=== PATIENT | female | born 1965 | race African-American/Black ===

== ENCOUNTER 2016-07-17 14:31 | Inpatient (IN) | payer MEDICARE, OTHER ==
--- NOTE | ~2016-07-17 | CN ---
Consultation Report [facility] [address] [place]. [address] NAME: MELISSA GARDNER : 61 STATUS : ADM IN PAT#: [id number] AGE: 51 ADM/REG DATE : 07/17/16 MR#: [id number] REPORT SERV DATE: 07/22/16 DICTATED BY: CIRILO CRUZ DATE: 07/22/16 REPORT STATUS : Draft TRANSCRIBED BY: MODL DATE: 07/22/16 CONSULTATION DATE OF CONSULTATION: REASON FOR CONSULTATION: Right atrial mass, consideration for surgical excision. CHIEF COMPLAINT: "I had clotting of my left arterial venous fistula." HISTORY OF PRESENT ILLNESS: This is a 51-year-old, morbidly obese, -Slovenian female, with history of end-stage renal disease, on hemodialysis. She recently had left arterial venous fistula created by Dr. Jenkins, and apparently developed clotting of her left AV fistula. She came back to [place] for declotting of the graft, and postprocedure developed hypotension and hypercapnic respiratory failure. She has a prior PermCath, which is used for dialysis currently. Because of hypotension, she underwent further evaluation including transthoracic echocardiogram, which appeared to show right atrial mass possibly involving the PermCath. Further evaluation with transesophageal echocardiogram today by Dr. Blue showed this mass to arise from the eustachian valve, although contiguous to the PermCath actually did not appear to be adherent to it. Her ejection fraction was 55% on transesophageal echocardiogram. The patient tells me that, she is a former patient of Dr. Nila Parada and had apparently an abnormal echocardiogram many years ago. She does not know what sort of heart problem she had, but was followed by Dr. Parada. She denies any history of heart attack. She denies any history of palpitations or abnormal heart rhythm other than bradycardia. She does have a greater than 33-[id number]-[id number] smoking history. She denies any recent chest discomfort, tightness, pressure, heaviness etc. She is wheelchair bound and transfers with assistance of a lift. PRIOR MEDICAL HISTORY: 1. Significant for end-stage renal disease, on dialysis. 2. Hypertension. 3. Morbid obesity. 4. Monoclonal gammopathy. 5. Cigarette smoking greater than 15 pack years. 6. Gastroesophageal reflux disease. 7. Anemia. 8. Respiratory failure. 9. Multiple sacral decubiti. 10.Seizure disorder. 11.Depression. 12.Iron deficiency anemia. 13.Chronic GI tract AVMs. 14.COPD, on bronchodilators. Consultation Report [facility] [address] [place]. [address] NAME: MELISSA GARDNER : 61 STATUS : ADM IN PAT#: [id number] AGE: 51 ADM/REG DATE : 07/17/16 MR#: [id number] REPORT SERV DATE: 07/22/16 DICTATED BY: CIRILO CRUZ DATE: 07/22/16 REPORT STATUS : Draft TRANSCRIBED BY: KO DATE: 07/22/16 PRIOR SURGICAL HISTORY: Significant for cholecystectomy, previous breast biopsy, tubal ligation, uterine ablation, and recently creation of left arteriovenous fistula. ALLERGIES: INCLUDE CEPHALEXIN CAUSING HER RESPIRATORY DISTRESS AND HALLUCINATIONS, VANCOMYCIN WITH SAME SYMPTOMS, LATEX WHICH CAUSES ITCHING AND SWELLING. HOME MEDICATIONS: Include albuterol inhaler with 2 puffs every 4 hours p.r.n., amlodipine 5 mg p.o. p.r.n., vitamin C 500 mg p.o. daily, baclofen 10 mg p.o. daily, Lexapro 20 mg p.o. daily, Breo Ellipta inhaler 1 puff daily, Keppra 250 mg p.o. b.i.d., Prilosec 20 mg p.o. daily, RenaPlex one capsule at bedtime, and Calphron 2 tabs p.o. before meals. Currently she is on heparin intravenous infusion. FAMILY HISTORY: Significant for hypertension, kidney problems. SOCIAL HISTORY: She is single, formally smoked up until this hospitalization, has remote history of drinking alcohol, but no recent use. No illicit drug use. REVIEW OF SYSTEMS: GENERAL: Negative for any recent weight change, fevers, chills, night sweats, or malaise. ENT: Positive for missing teeth. RESPIRATORY: Positive for COPD, shortness of breath, and recent respiratory failure. CV: As above. She has chronic swelling of her lower extremities. GI: Positive for gastroesophageal reflux disease, the patient denies any history of black tarry or discolored stools and denies any history of GI bleeding. : Positive for her chronic kidney disease and recurrent urinary tract infections. MUSCULOSKELETAL: Positive for weakness in the lower extremities, limited mobility, and essentially wheelchair confined. NEUROLOGIC: Denies any history of stroke or TIA. ENDOCRINE: Negative. HEME/ONC: Positive for anemia. INTEGUMENTARY: Positive for sacral decubiti, dry skin, and scaling skin over lower extremities. Otherwise, negative or as above. PHYSICAL EXAMINATION: GENERAL: She is a pleasant -Slovenian female, lying in bed, with warming blanket. VITAL SIGNS: Her height is 167.56 cm, weight 125.6 kg giving her BMI of 44.7. VITAL SIGNS: Blood pressure is 108/56, temperature 98.6, pulse is 47, respirations 20 regular and unlabored, saturation is 100% on 3 L nasal cannula. HEENT: Normocephalic, atraumatic. Pupils are equal, round, reactive to light and accommodation, sclerae clear, conjunctivae pink. Oral and buccal mucosa pink and moist, teeth in reasonable condition and multiple missing teeth. NECK: Supple. No restricted range of motion. No carotid bruits. No jugular venous distention. CHEST: Diminished breath sounds in left lung bases with few scattered expiratory wheezes. Consultation Report [address] [place]. [address] NAME: MELISSA GARDNER : 61 STATUS : ADM IN [facility]#: [id number] AGE: 51 ADM/REG DATE : 07/17/16 MR#: [id number] REPORT SERV DATE: 07/22/16 DICTATED BY: CIRILO CRUZ DATE: 07/22/16 REPORT STATUS : Draft TRANSCRIBED BY: MODKatie DATE: 07/22/16 No use of accessory muscles. No chest wall tenderness. BREASTS: Not examined. She has purulent drainage from multiple foci in the left axilla. CV: Regular rate and rhythm without murmur or rub. She has palpable central pulses and upper extremity peripheral pulses, significant lower extremity edema. ABDOMEN: Obese, nontender with normoactive bowel sounds. /RECTAL: Declined. MUSCULOSKELETAL: No kyphoscoliosis. No asymmetry. NEUROLOGIC: She is alert and oriented to day, date, place, and situation. Speech is clear, fluent, no focal deficits. She moves all extremities. DATA: Her chest x-ray shows bilateral interstitial edema. CTA chest on 07/19/2016 showed truncal obesity, cardiomegaly, no PE, and bibasilar atelectatic changes left greater than right with small pleural effusions. There was noted a central line with associated thrombus in the catheter tip. Also, reported relative stenosis of the superior vena cava and moderate pulmonary edema. A 12-lead EKG on 07/18/2016 showed normal sinus rhythm with right axis deviation, T wave abnormality, consider inferior ischemia. Echocardiograms as mentioned above. LABORATORIES: ABG showed pH of 7.31, PaCO2 of 49, PaO2 of 87, bicarb 24.1. CBC shows mild leukocytosis at 13.4, hemoglobin 10.8g, hematocrit 34.7%, platelets 187,000. Her electrolytes drawn while on CRRT show sodium 138, potassium 4.1, chloride 99, CO2 of 28, BUN 8, creatinine 1.15. Nasal swab is positive for MRSA. Stool for occult blood today was positive. Swab from the left axillary and purulent drainage on Gram stain showed gram- positive cocci. IMPRESSION: 1. Right atrial mass/myxoma. 2. Recent respiratory failure and hypotension. 3. Morbid obesity. 4. Sacral decubiti. 5. Possible suppurative hidradenitis, left axilla. 6. Anemia. 7. Heme positive stool. 8. End-stage renal disease, on dialysis, currently on CRRT. PLAN: Discussed with the patient and her son today. Likely, will require surgical excision of the right atrial myxoma at this hospitalization, and in preparation for this, we will need diagnostic coronary arteriogram. Dr. Swift will see and make further surgical plans and disposition. We appreciate the opportunity to participate in her care. JESS/KO Cirilo Sofia Consultation Report [address] [place]. [place]. [address] NAME: MELISSA GARDNER : 61 STATUS : ADM IN [facility]#: [id number] AGE: 51 ADM/REG DATE : 07/17/16 MR#: [id number] REPORT SERV DATE: 07/22/16 DICTATED BY: CIRILO CRUZ DATE: 07/22/16 REPORT STATUS : Draft TRANSCRIBED BY: MODL DATE: 07/22/16 Francisco Javier Cruz / [id number] CC: Cecy Cat M.D.
--- NOTE | ~2016-07-17 | HP ---
History And Physical [address] [place]. [address] NAME: MELISSA GARDNER : 61 STATUS : ADM IN PAT#: [id number] AGE: 51 ADM/REG DATE : 07/17/16 MR#: [id number] REPORT SERV DATE: 07/21/16 DICTATED BY: HEAVENLY ESCAMILLA DATE: 07/21/16 REPORT STATUS : Draft TRANSCRIBED BY: MODKatie DATE: 07/21/16 DATE OF ADMISSION: 07/17/2016 HISTORY: The patient is a 51-year-old female. She is on dialysis with a PermCath. She had a recent placement of a left arm AV graft which is known to be thrombosed. It was felt she would benefit from thrombectomy to treat this. The patient is without other complaints currently. REVIEW OF SYSTEMS: The patient denies fever, chills, or systemic complaints. She denies chest pain, palpitations, shortness of breath, or cough. MEDICATIONS: Listed in full on the chart. ALLERGIES: LISTED IN FULL ON THE CHART. ILLNESSES: End-stage renal disease, hypertension, morbid obesity, tobacco use, and reflux. SURGICAL HISTORY: AV access. SOCIAL HISTORY: Positive for history of tobacco use. No alcohol. FAMILY HISTORY: Noncontributory. PHYSICAL EXAMINATION: GENERAL: The patient is in no distress. VITAL SIGNS: Normal. NEUROLOGIC: She is alert and oriented with preserved motor function in lower extremities and upper extremities. LUNGS: Clear. HEART: Regular. EXTREMITIES: Left arm shows a clotted AV graft. IMPRESSION: Clotted left arm AV graft. PLAN: Plan is for thrombectomy of this. She will hopefully be discharged afterwards. LOUIS/KO Heavenly Escamilla M.D. / [id number] History And Physical [address] [place]. [address] NAME: MELISSA GARDNER : 61 STATUS : ADM IN PAT#: [id number] AGE: 51 ADM/REG DATE : 07/17/16 MR#: [id number] REPORT SERV DATE: 07/21/16 DICTATED BY: HEAVENLY ESCAMILLA DATE: 07/21/16 REPORT STATUS : Draft TRANSCRIBED BY: MODL DATE: 07/21/16 CC: Cecy Cat M.D.
--- NOTE | ~2016-07-17 | CN ---
Consultation Report [facility] [address] [place]. [address] NAME: MELISSA FREGOSO : 61 STATUS : ADM IN [facility]#: [id number] AGE: 51 ADM/REG DATE : 07/17/16 MR#: [id number] REPORT SERV DATE: 07/19/16 DICTATED BY: J CARLOS COFFEY DATE: 07/19/16 REPORT STATUS : Draft TRANSCRIBED BY: MODL DATE: 07/19/16 PULMONARY AND CRITICAL CARE CONSULTATION DATE OF CONSULTATION: 07/19/2016 REASON FOR CONSULTATION: Hypotension of unclear etiology. HISTORY OF PRESENT ILLNESS: Ms. Fregoso is a 51-year-old lady, who has end-stage renal disease, morbid obesity and hypertension, who was admitted to the vascular surgery service for a clotted left arm dialysis access on 07/17. She underwent open thrombectomy of the left arm AV graft with fistulogram and angioplasty with arterial anastomosis of the AV graft by Dr. Jenkins, which was uneventful, and she was transferred to the CCU for close monitoring postoperatively. Unfortunately, she developed hypotension and she was seen by Dr. Arzate for ESRD. He worked her up for her hypotension as she was dependent on Ric-Synephrine for hemodynamic support, and she was found to be adrenally insufficient with leukocytosis and was started on Solu-Cortef and Azactam earlier today. She did have an echocardiogram, which showed a right atrial mass with a question of myxoma versus thrombus and was seen by Dr. Blue for possible SONYA, which has been scheduled for later this week. We are asked to assist with additional management of her hypotension. PAST MEDICAL HISTORY: ESRD, on hemodialysis through [facility]; hypertension; morbid obesity; monoclonal gammopathy; tobacco use; GERD; seizure disorder. PAST SURGICAL HISTORY: AV graft placement in 05/[address] Jenkins (05/27/2016) and thrombectomy performed on 07/17/2016. SOCIAL HISTORY: She is single and lives with her significant other. She is unemployed, on disability, has limited mobility. She is a former smoker, but quit in 2012. Denies alcohol or illicit drug use. FAMILY HISTORY: Significant for hypertension, dyslipidemia, and diabetes in multiple first- degree relatives. ALLERGIES: SULFA. HOME MEDICATIONS: Include albuterol, amlodipine, ascorbic acid, baclofen, Lexapro, fluticasone, and Keppra. ADVANCE DIRECTIVES AND LIVING VILLA: None. REVIEW OF SYSTEMS: A comprehensive 13-point review of systems was completed and was negative, except for those points described above in the history of present illness section of the dictation. Consultation Report [facility] [id number] [place]. [address] NAME: MELISSA FREGOSO : 61 STATUS : ADM IN PAT#: [id number] AGE: 51 ADM/REG DATE : 07/17/16 MR#: [id number] REPORT SERV DATE: 07/19/16 DICTATED BY: J CARLOS COFFEY DATE: 07/19/16 REPORT STATUS : Draft TRANSCRIBED BY: KO DATE: 07/19/16 PHYSICAL EXAMINATION: GENERAL: The patient is an female, in no acute distress. VITAL SIGNS: Blood pressure is 112/80, heart rate is 78. She is afebrile. Pain scale is 2/10, and the left upper arm is the source of her pain. HEENT: Head is atraumatic and normocephalic. Pupils are equal, round, and reactive to light. Extraocular movements are intact. Ears, nose, and mouth are unremarkable. She has fair oral dentition and moist oral mucosa. NECK: Supple without JVD. CHEST: Atraumatic and has symmetric rise. She has scattered crackles at the bases bilaterally, but no audible wheeze. She has few transmitted upper airway sounds, which clear with coughing. HEART: S1 and S2. Brisk cap refill in distal extremities. ABDOMEN: Obese, soft, nontender, nondistended with positive bowel sounds in all four quadrants and no appreciable peritoneal signs. EXTREMITIES: She has a clean dressing over her left upper extremity thrombectomy site. Extremities are otherwise unremarkable, except for some trace pitting edema at the pretibial region of her legs. LYMPHATIC: Unremarkable. NEUROLOGIC: Grossly intact. She has symmetric sensorimotor function, intact cranial nerve function, and appropriate cooperative and interactive responses. PSYCHIATRIC: Appropriate to situation. LABORATORY DATA: Personal review of diagnostic workup completed includes a CBC which shows leukocytosis, white blood cell count is 20.3 with a neutrophil-predominant differential. She has mild normochromic-normocytic anemia with a hemoglobin of 11.2 and hematocrit of 36.9. Platelet count is adequate at 311. Her coags are within normal limits with an INR of 1.3. Metabolic profile significant for normal electrolytes. She has a BUN of 25 and a creatinine of 4.52 (she has ESRD). Calcium is 8, which corrects upwards with an albumin of 2.6, glucose of 152, calcium is 8, phosphorus 5.4. Her TSH is 1.60, her free T4 is 1.12, and her free T3 is 1.52, which is mildly below the lower limit of normal; however, this is commonly seen in critically ill patients with euthyroid sick syndrome. An ABG shows mild respiratory acidosis with a pH of 7.29, paCO2 of 54, and pO2 of 78. Of note, although she is morbidly obese, I have reviewed her old Nephrology records and she is not a chronic CO2 retainer as far as we can tell from the [facility] lab work dating back at least two years, base excess of -1.9. A blood culture was collected and is negative thus far. A cortisol level was 18, and she is already started on Solu-Cortef by Dr. Arzate. An echocardiogram shows a right atrial mass, unclear myxoma versus thrombus versus vegetation. IMPRESSION: Hypotension/shock of unclear etiology, less likely hypovolemic as she is mildly edematous and is a chronic dialysis patient with a net positive fluid balance. In light of her adrenal insufficiency, cannot exclude this as a source of her hypotension and she was already started on Solu-Cortef this morning by Dr. Arzate. With regard to her leukocytosis, a blood culture has already been collected and procalcitonin is pending. She has already been started on Azactam by Dr. Arzate for suspicion of septic shock, although she has this new finding of the atrial mass. She has already been seen by Dr. Blue, Consultation Report [address] [place]. [address] NAME: MELISSA FREGOSO : 61 STATUS : ADM IN [facility]#: [id number] AGE: 51 ADM/REG DATE : 07/17/16 MR#: [id number] REPORT SERV DATE: 07/19/16 DICTATED BY: J CARLOS COFFEY DATE: 07/19/16 REPORT STATUS : Draft TRANSCRIBED BY: KO DATE: 07/19/16 and he has already made recommendations with regard to SONYA later in the week. There was no comment with regard to obstructive shock on her echo. However, would agree with a PE study, which has already been recommended by Dr. Blue to exclude obstructive shock as a source for her hypotension. She is already on anticoagulation with a heparin drip. We appreciate your consultation. We will follow along with you. MONICA/KO J Carlos Coffey MD / [id number] CC: Patrick Jenkins M.D. Taran Ni M.D.
--- NOTE | ~2016-07-17 | TEE ---
Transesophageal Echocardiogram [facility] [address] [place]. [address] NAME: MELISSA GARDNER : 61 STATUS : ADM IN [facility]#: [id number] AGE: 51 ADM/REG DATE : 07/17/16 MR#: [id number] REPORT SERV DATE: 07/22/16 DICTATED BY: CHANO AGUILERA DATE: 07/22/16 REPORT STATUS : Draft TRANSCRIBED BY: MODKatie DATE: 07/22/16 SONYA REPORT INDICATION: Right atrial mass seen on transthoracic echocardiogram. Informed consent was obtained, signed, and on the chart prior to proceeding. A time-out was performed. Sedation was per Anesthesia, and esophageal intubation was without difficulty. TECH: TD. The overall quality of study was good. PROCEDURES PERFORMED: Included 2D, 3D, color, and spectral Doppler. 3D interrogation of the right atrial mass was performed with personal online and manual manipulation of the 3D data set to further assess mass anatomy. FINDINGS: CHAMBERS: 1. The right atrium appeared moderately-severely dilated. The superior and inferior vena cava appeared normal. There was a catheter tip extending from the superior vena cava into the mid portion of the right atrium. There was a large 3 to 3.5 cm mass that appeared around and somewhat irregular. It had a soft tissue echotexture. There was some tiny independently mobile "fronds" associated with the mass that appeared to attached to a region adjacent to the cava, tricuspid isthmus, and IVC, likely at the eustachian valve. The catheter tip was adjacent to the mass, but was not intimately associated with the mass. This mass likely represents a right atrial myxoma arising from the region of the eustachian valve. 2. The right ventricle was moderately dilated with moderate-severe hypocontractility. There was no mass thrombus seen. 3. The left atrium appeared mildly enlarged. Left atrial appendage was noted. There was no mass thrombus seen. 4. The left ventricle appeared mildly enlarged with a visually estimated EF of 55%. There were no regional wall motion abnormalities. There was no mass thrombus seen. VALVES: 1. Aortic valve morphology was trileaflet with adequate mobility. There were no valvular vegetations or masses seen. Aortic regurgitation was not assessed. 2. The mitral valve morphology was normal with fully mobile leaflets. There were no valvular vegetations or masses seen. Mitral regurgitation was not assessed. 3. The pulmonic valve appeared grossly normal with adequate mobility. The main pulmonary artery was mildly dilated. There was no mass or thrombus seen. There was trivial pulmonic regurgitation. 4. The tricuspid valve morphology was normal with fully mobile leaflets. There were no vegetations or masses seen. There was mild-moderate tricuspid regurgitation. The peak TR jet of 3.5 m/sec, and with an elevated right atrial pressure, this corresponds to a right ventricular systolic pressure of 60 to 70 mmHg (estimated). Transesophageal Echocardiogram [address] [address] NAME: MELISSA GARDNER : 61 STATUS : ADM IN PAT#: [id number] AGE: 51 ADM/REG DATE : 07/17/16 MR#: [id number] REPORT SERV DATE: 07/22/16 DICTATED BY: CHANO AGUILERA DATE: 07/22/16 REPORT STATUS : Draft TRANSCRIBED BY: MODL DATE: 07/22/16 OTHER: The interatrial septum was examined with multiple angulations and was intact by visual inspection with no mass or thrombus seen. There was no interatrial shunt seen by color Doppler. There was no pericardial effusion. The descending thoracic aorta appeared grossly normal in caliber with no significant atherosclerosis or dissection. 3D: 3D interrogation of the right atrial mass was performed with personal online manual manipulation confirming the above-stated findings of a large 3 to 3.5 cm soft tissue echodensity attached to a region adjacent to the eustachian valve with a "stalk." Catheter tip adjacent to, but separate from the right atrial mass. COMPLICATIONS: None. CONCLUSION: 1. 3 TO 3.5 CM RIGHT ATRIAL MASS ATTACHED TO A REGION ADJACENT TO THE EUSTACHIAN VALVE, LIKELY REPRESENTING A RIGHT ATRIAL MYXOMA. 2. RIGHT ATRIAL CATHETER TIP FROM THE SVC TO THE MID RA ADJACENT TO, BUT NOT INVOLVED WITH THE RIGHT ATRIAL MASS DESCRIBED ABOVE. 3. MODERATE-SEVERE RIGHT ATRIAL ENLARGEMENT. 4. MODERATELY ENLARGED RV WITH MODERATE-SEVERE HYPOCONTRACTILITY, CONSISTENT WITH COR PULMONALE. 5. MILD TRICUSPID REGURGITATION. 6. SEVERE PULMONARY HYPERTENSION. 7. INTACT INTERATRIAL SEPTUM. AEA/MODL Chano Aguilera M.D. / [id number] CC: Cecy Cat M.D.
--- NOTE | ~2016-07-17 | OP ---
Record Of Operation [facility] [address] [place]. [address] NAME: MELISSA FREGOSO : 61 STATUS : ADM [facility]#: [id number] AGE: 51 ADM/REG DATE : 07/17/16 MR#: [id number] REPORT SERV DATE: 07/20/16 DICTATED BY: LISBETH CARPENTER DATE: 07/20/16 REPORT STATUS : Draft TRANSCRIBED BY: KO DATE: 07/20/16 DATE OF PROCEDURE: 07/20/2016 PREOPERATIVE DIAGNOSIS: Poor IV access with need for vasopressors. POSTOPERATIVE DIAGNOSIS: Poor IV access with need for vasopressors. PROCEDURE: 1. Ultrasound-guided percutaneous access, right femoral vein. 2. Placement of right femoral vein central line. SURGEON: Lisbeth Carpenter M.D. ANESTHESIA: Local. ESTIMATED BLOOD LOSS: Negligible. COMPLICATIONS: None. INDICATIONS: Ms. Fregoso is a 51-year-old female, who is critically ill in the intensive care unit, on CRRT and multiple pressors. She has what appears to be a thrombus in her cavoatrial region, which may or may not be associated with her dialysis catheter. At any rate, she has limited IV access and needs ongoing pressors. I elected to place a femoral central line due to the aforementioned cavoatrial thrombus. DETAILS OF PROCEDURE: After informed consent was obtained, the patient was prepped and draped in the usual sterile fashion in the intensive care unit. I used ultrasound guidance to identify the femoral vein. It was widely patent and easily compressible. Permanent image of the vein documenting patency was saved and stored in the patient's chart. I anesthetized the skin. I accessed with an 18-gauge entry needle and easily passed a J-tip guidewire intravenous. I dilated the subcutaneous tract. I then placed a triple-lumen central line over the wire. All three ports aspirated dark venous blood and flushed easily with heparinized saline. Catheter was secured to the skin with 2-0 silk. Sterile dressings were applied. The patient tolerated the procedure well with no complications. SARAH/KO Lisbeth Carpenter M.D. / [id number] CC: Patrick Jenkins M.D. Record Of Operation [address] [address] NAME: MELISSA FREGOSO : 61 STATUS : ADM IN PAT#: [id number] AGE: 51 ADM/REG DATE : 07/17/16 MR#: [id number] REPORT SERV DATE: 07/20/16 DICTATED BY: LISBETH CARPENTER DATE: 07/20/16 REPORT STATUS : Draft TRANSCRIBED BY: MODL DATE: 07/20/16 Taran Ni M.D.
--- NOTE | ~2016-07-17 | DS ---
Discharge Summary [facility] [address] [place]. [address] NAME: MELISSA GARDNER : 61 STATUS : DIS IN PAT#: [id number] AGE: 51 ADM/REG DATE : 07/17/16 MR#: [id number] REPORT SERV DATE: 08/07/16 DICTATED BY: HEAVENLY JENKINS DATE: 08/06/16 REPORT STATUS : Draft TRANSCRIBED BY: MODKatie DATE: 08/06/16 Data Collection from hospitalization DISCHARGE DIAGNOSES: 1. Clotted left arm arteriovenous graft. 2. Hypertension. 3. End-stage renal disease. 4. Morbid obesity. 5. Tobacco use. 6. Reflux. 7. Former smoker. CONSULTATIONS: Dr. Yulia Arzate. Dr. Ace Blue. Dr. Missy Mccurdy. Cirilo Howard N.P. Dr. Demetrio Tapia. PROCEDURES PERFORMED: 1. Open thrombectomy, left arm arteriovenous graft, fistulogram, angioplasty, arterial anastomosis, arteriovenous graft, 07/17/2016. 2. Ultrasound-guided percutaneous access, right femoral vein, placement of right femoral vein central line, 07/20/2016. 3. CTA of the chest, 07/19/2016. 4. Cardiac catheterization. DISCHARGE MEDICATIONS: Ventolin two puffs via inhaler every four hours as needed, Norvasc 5 mg daily as needed, Eliquis 2.5 mg twice a day, vitamin C 500 mg daily, Lioresal 10 mg twice a day, Monodox 100 mg twice a day, Lexapro 20 mg daily, Breo Ellipta one puff via inhaler daily, Keppra 250 mg twice a day, ProAmatine 5 mg three times a day, Prilosec 20 mg daily, Percocet 5/325 one to two tablets every four hours as needed, RenaPlex one capsule at bedtime, Calphron, vitamin two tablets before meals. CONDITION AT DISCHARGE: Stable. DISPOSITION: The patient was discharged home to be followed by home health care on a renal diet with activities as instructed. She would follow up with me, 08/21/2016. She would follow up with Dr. Jairo Swift, 08/14/2016. She is to have her renal ultrasound as instructed and would follow up at [facility], 07/31/2016. HOSPITAL COURSE: This is a 51-year-old female, who is on dialysis with a PermCath. She had a recent left arm AV graft, which was known to be thrombosed. It was felt that she would benefit from thrombectomy to treat this. She had no other complaints at this time. She was admitted to the hospital for further evaluation and treatment. Upon admission, she was taken to the operating room where she underwent the above-mentioned procedure. She tolerated this well and there were no complications. On postop day #1, she was seen by Dr. Yulia Arzate regarding end-stage renal disease, on hemodialysis. Postoperatively, she had developed hypotension and hypoxemia. She was transferred to the CCU. She remained on Ric-Synephrine at this time. She had no acute complaints. She had undergone dialysis on Thursday prior to this admission. Dr. Arzate wanted to get her off Discharge Summary [address] [place]. [address] NAME: MELISSA GARDNER : 61 STATUS : DIS IN PAT#: [id number] AGE: 51 ADM/REG DATE : 07/17/16 MR#: [id number] REPORT SERV DATE: 08/07/16 DICTATED BY: HEAVENLY JENKINS DATE: 08/06/16 REPORT STATUS : Draft TRANSCRIBED BY: KO DATE: 08/06/16 Ric-Synephrine prior to initiation of dialysis as it was felt that her hypotension would only worsen. An echocardiogram was going to be checked as well as blood cultures. Supportive care was continued. On 07/19/2016, dialysis had been performed. Echocardiogram had shown right atrial thrombus. She was now off pressors. She was placed on heparin. She was seen in consultation by Dr. Ace Blue regarding abnormal echo. She denied any history of chest pain or chest tightness. She does have chronic dyspnea, but no other particular symptoms. She said her last echo was many years ago. She had had no syncope, but is limited in her ambulation. White blood cell count was 18. INR level was 1.3. Blood cultures were negative thus far. She is morbidly obese. It was felt that visualizing the right atrial mass would be most consistent with thrombus for possible myxoma. Given the history of recent declot of the arm and acute hypoxia and hypotension, there was concern about the possibility of clot and pulmonary embolus. The patient was on heparin. A CT scan was recommended when clinically possible to evaluate her for this process. We would consider transesophageal echocardiogram earlier in the week when she was hemodynamically improved and her oxygenation was stable. She was also seen by Dr. Missy Mccurdy regarding hypotension of unclear etiology. Her hypotension/shock was of unclear etiology. It was felt to be less likely hypokalemic as she is mildly edematous and is a chronic dialysis patient with net positive fluid balance. In the light her adrenal insufficiency, we could not exclude this as a source of her hypotension as she had already started on Solu-Cortef that morning. With regard to the leukocytosis, a blood culture was collected and procalcitonin level was pending. She was started on Azactam. She was on a heparin drip. A CTA of the chest was performed. On the , CRRT therapy was being provided. She had no chest pain or shortness of breath. She was in a normal sinus rhythm. Heparin was continued. She underwent ultrasound-guided percutaneous access, right femoral vein and placement of right femoral vein central line by Dr. Arya Carpenter. She tolerated this well and there were no complications. On 07/21/2016, she had no shortness of breath. Ric-Synephrine had been stopped. CRRT therapy continued. She had no chest pain or shortness of breath. The patient stated that her breathing had improved. She had a productive cough with clear phlegm. She was off pressors. She was tolerating ultrafiltration. CRRT would be discontinued when the filter clots and she would be transitioned to hemodialysis. Transesophageal echocardiogram was performed. She was seen by Cirilo Howard regarding right atrial mass and consideration for surgical excision. Chest x-ray showed bilateral interstitial edema. The patient has a right atrial mass/myxoma. It was felt that the patient would likely require surgical excision of the right atrial myxoma and in preparation for this, we would need diagnostic coronary arteriogram. On the , she had no shortness of breath. White blood cell count was elevated. She was in a normal sinus rhythm. White blood cell count was 18,000. On 07/24/2016, she had no shortness of breath. Hemodialysis therapy was performed. The patient was taken to the cardiac laborer construction or leak gang, where she underwent the above mentioned cardiac catheterization by Dr. Arya Zhu. She tolerated this well and there were no complications. She was seen by Dr. Demetrio Tapia regarding left axillary drainage and culture growing ESBL E. coli. It was noted that she had drainage from the left axilla and a culture was sent. According to the patient, this happened while she was given a bath and someone collected drainage from the left axilla with a tongue blade and put it in a cup. The Gram stain had few white blood cells and gram-positive cocci. Cultures grew sparse ESBL E coli and Discharge Summary [address] [place]. [address] NAME: MELISSA GARDNER : 61 STATUS : DIS IN PAT#: [id number] AGE: 51 ADM/REG DATE : 07/17/16 MR#: [id number] REPORT SERV DATE: 08/07/16 DICTATED BY: HEAVENLY JENKINS DATE: 08/06/16 REPORT STATUS : Draft TRANSCRIBED BY: KO DATE: 08/06/16 moderate gram-positive cocci. She was started on doxycycline the day previously and earlier in the day, was started on meropenem. She had had leukocytosis the whole time she was here, but she was on steroids plus looking back in the computer, it looked as if she had leukocytosis in the past. The patient said she had two other episodes of drainage from the left axilla in the past and once she was given antibiotics in the emergency room. She also had some under the breast in the past. The history was suggestive of hidradenitis suppurative in the aspect of the left axilla with multiple scars, which confirmed this. She reported occasional cough, but no shortness of breath. She was currently not on pressors, but was still on Solu-Cortef. She was felt to have hidradenitis suppurative involving the left axilla. Typically, antibiotics do not really make a big difference. Mainly, it was suggested to keep the area clean and to facilitate drainage. The only treatment would be radical resection when there was evidence of severe inflammation and sepsis. It would be okay to try doxycycline for the anti-inflammatory effect. Contact precautions were in place. On 07/26/2016, she seemed to feel fine. She had no chest pain, shortness of breath, or palpitations. Her lungs were clear. Hemodialysis therapy was performed. Solu-Cortef was held. The following day, she was feeling good. She was wanting to go home. She was in a sinus rhythm. Discharge planning was performed. The patient had not been out of bed since admission. She was evaluated by Physical Therapy. It was felt that she was currently at her baseline of functional mobilization. She is wheelchair dependent and had not ambulated in about nine years. Discharge planning continued. Antibiotics were continued. Blood pressure was okay on midodrine. On 07/28/2016, she was afebrile. Her vital signs were stable. She had no chest pain or shortness of breath. She was seen on hemodialysis. Discharge instructions were given. Due to her improved and stable condition, she was discharged home to be followed by home health care with the above-stated instructions. Information collected by: Tori Schmidt I submit the above information as my discharge summary. TG/KO Heavenly Jenkins M.D. / [id number] CC: Heavenly Jenkins M.D. Taran Ni M.D. Francisco Javier Gonzalez M.D. Lindsay C Crawford, M.D. Ace Blue M.D., Ph.D, F.A.C.C.
--- NOTE | ~2016-07-17 | CN ---
Consultation Report [facility] [address] [place]. [address] NAME: MELISSA FREGOSO : 61 STATUS : ADM IN [facility]#: [id number] AGE: 51 ADM/REG DATE : 07/17/16 MR#: [id number] REPORT SERV DATE: 07/19/16 DICTATED BY: ACE CLARK DATE: 07/19/16 REPORT STATUS : Draft TRANSCRIBED BY: MODKatie DATE: 07/19/16 CARDIOLOGY CONSULTATION DATE OF CONSULTATION: REQUESTING PHYSICIAN: Dr. Arzate. REASON FOR CONSULTATION: Abnormal echo. HISTORY OF PRESENT ILLNESS: Ms. Fregoso is a 51-year-old woman with a history of end-stage kidney disease, who has been on hemodialysis for 2 years. She was admitted to the hospital for declot of an arm graft. A large amount of thrombus was noted. After the procedure, she had persistent hypotension and hypoxia and was transferred to the CCU. An echocardiogram was obtained. The patient denies history of chest pain or chest tightness. She has chronic dyspnea but no other particular symptoms. She reports her last echo was many years ago. She has had no syncope but is limited in her ambulation. REVIEW OF SYSTEMS: The review of systems is as per the history of present illness. Ten other systems are negative. PAST MEDICAL HISTORY: 1. End-stage renal disease, on hemodialysis for 2 years with dialysis through a catheter which has been in place for 2 years by her report. 2. Morbid obesity. 3. Hypertension. 4. Reflux. 5. Monoclonal gammopathy. 6. Seizure disorder. FAMILY HISTORY: Positive for hypertension and kidney problems. SOCIAL HISTORY: The patient is single. Former smoker. No alcohol. ALLERGIES: CEPHALEXIN, VANCOMYCIN, AND LATEX. HOME MEDICATIONS: Albuterol; Norvasc 5 daily; vitamin C; baclofen; Lexapro; Keppra; and Prilosec. PHYSICAL EXAMINATION: VITAL SIGNS: The patient is afebrile. Heart rate 92, blood pressure 112/59. GENERAL: The patient is a pleasant, obese, black female, in no apparent distress. HEENT: Conjunctivae are anicteric, no xanthelasma, lips without cyanosis. NECK: Supple. Jugular venous pressure is difficult to assess. Carotids +2 without bruit. Consultation Report [facility] [address] [place]. [address] NAME: MELISSA FREGOSO : 61 STATUS : ADM IN PAT#: [id number] AGE: 51 ADM/REG DATE : 07/17/16 MR#: [id number] REPORT SERV DATE: 07/19/16 DICTATED BY: ACE CLARK DATE: 07/19/16 REPORT STATUS : Draft TRANSCRIBED BY: MODL DATE: 07/19/16 LUNGS: No wheezes, rales or rhonchi. Decreased breath sounds bilaterally. CARDIOVASCULAR: Regular rate and rhythm. Normal S1, S2. No murmur, rub, or gallop. Distant heart sounds. PMI is nondisplaced. ABDOMEN: Abdomen is obese, nontender, and nondistended. No hepatomegaly. EXTREMITIES: No edema. NEURO/PSYCH: Alert and oriented to person, place and time. No obvious neurologic deficits. Mood and affect normal. DATA: White blood cell count is 18, hematocrit 34. INR 1.3. Creatinine is 4.5. Blood cultures negative thus far. IMPRESSION: 1. 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 2. End-stage renal disease, on hemodialysis. 3. Hypotension and hypoxia. 4. Morbid obesity. 5. Hypertension. 6. Seizure disorder. RECOMMENDATIONS: Ms. Fregoso has an abnormal echo. She is morbidly obese and her echocardiogram is somewhat limited. I would think that visualizing this right atrial mass would be most consistent with thrombus or possible myxoma. Given the history of recent declot of her arm and acute hypoxia and hypotension, I am concerned about the possibility of clot and PE. I have discussed this with Dr. Arzate. She is on heparin now and I think she is adequately treated. I think I would recommend a CT scan when clinically possible for her to evaluate for that process. We could consider SONYA early in the week when she is hemodynamically improved and her oxygenation is stable. She would need to be sedated per Anesthesia for that elective SONYA procedure which may be able to allow us to better characterize this right atrial mass. I have discussed this with the patient as well. She is somewhat frustrated in that she was interested in going home but I have discussed with her that it is going to be important to figure out what is going on with her. Thank you for this consultation. Please contact me if you have any further questions. WO/MODL Ace Clark M.D., Ph.D, F.A.C.C. / [id number] CC: Patrick Jenkins M.D. Consultation Report [address] [address] NAME: MELISSA FREGOSO : 61 STATUS : ADM IN PAT#: [id number] AGE: 51 ADM/REG DATE : 07/17/16 MR#: [id number] REPORT SERV DATE: 07/19/16 DICTATED BY: ACE CLARK DATE: 07/19/16 REPORT STATUS : Draft TRANSCRIBED BY: MODL DATE: 07/19/16 Taran Ni M.D.
--- NOTE | ~2016-07-17 | CN ---
Consultation Report [facility] [address] [place]. [address] NAME: MELISSA GARDNER : 61 STATUS : ADM IN PAT#: [id number] AGE: 51 ADM/REG DATE : 07/17/16 MR#: [id number] REPORT SERV DATE: 07/24/16 DICTATED BY: DEMETRIO BARAHONA DATE: 07/24/16 REPORT STATUS : Draft TRANSCRIBED BY: MODL DATE: 07/24/16 INFECTIOUS DISEASE CONSULTATION DATE OF CONSULTATION: REASON FOR CONSULT: Left axillary drainage, culture growing ESBL E. coli. 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 She had an AV graft made on 05/27/2015. Of note, is that she received Ancef at the time of the procedure and then on 07/17/2016, she had an angioplasty and open thrombectomy of this graft because it was clotted. It looks like she received clindamycin for this. Postop, she had hypotension and hypoxemia. She was started on Solu-Cortef and pressors. Blood culture was negative. Echocardiogram showed a right atrial mass. On 07/19/2016, aztreonam was started for concern with sepsis. A CT of the chest showed a cardiomegaly, segmental left lower lobe atelectasis, pulmonary edema, and possible right atrial mass. On 07/20/2016, a right femoral central line was placed. On 07/21/2016, the Azactam was stopped. On 07/22/2016, the SONYA showed right atrial mass with "fronds" but not associated with the catheter tip. Right ventricle is dilated and had decreased contractibility. The left ventricular ejection fraction was good. There is pulmonary hypertension. Somebody noted that she had drainage from the left axilla and send a culture. According to the patient, this happened while she was given a bath and somebody collected drainage from left axilla with a tongue blade and put it in a cup. The Gram stain had few white blood cells and gram-positive cocci. The cultures grew sparse ESBL E. coli and moderate gram- positive cocci. ID consult was requested for this. She was started on doxycycline yesterday, then meropenem today. The patient has had leukocytosis the whole time here but she is on steroids plus looking back in the computer looks like she has had leukocytosis in the past. Procalcitonin was 0.3, liver enzymes within normal limits. She has been afebrile. Upon discussing with the patient, she has had about two other episodes of drainage from the left axilla in the past and one time she was given antibiotics at the emergency room. She also had some under the breast in the past. This history is suggestive of hidradenitis suppurativa in the aspect of the left axilla with multiple scars confirms that. She reports occasional cough, no shortness of breath. She is currently not on pressors but still on Solu-Cortef. PAST MEDICAL HISTORY: As I mentioned above plus possible history of CO2 retention, history of cholecystectomy, and tubal ligation. Consultation Report [facility] [address] [place]. [address] NAME: MELISSA GARDNER : 61 STATUS : ADM IN [facility]#: [id number] AGE: 51 ADM/REG DATE : 07/17/16 MR#: [id number] REPORT SERV DATE: 07/24/16 DICTATED BY: DEMETRIO BARAHONA DATE: 07/24/16 REPORT STATUS : Draft TRANSCRIBED BY: KO DATE: 07/24/16 ALLERGIES: SHE STATES VANCOMYCIN AND KEFLEX MADE HER LOOPY AND CAUSED MILD SHORTNESS OF BREATH. I SEE DOCUMENTED DOSE OF ANCEF ON THE 05/27/2016 HERE AT [facility]. SOCIAL HISTORY: She quit smoking four years ago. FAMILY HISTORY: Hypertension. MEDICATIONS ON ADMISSION: Albuterol, amlodipine, vitamin C, baclofen, Lexapro, Breo Ellipta, Keppra, Prilosec, RenaPlex, and Calphron Vit. PHYSICAL EXAMINATION: GENERAL: She is alert, awake. LUNGS: Distant sounds. Hard to evaluate. Decreased sounds throughout. ABDOMEN: Very obese, compressible. SKIN: Left axilla scars as I mentioned. There are still small fistulous openings with whitish fluid discharge. No wounds are seen on in the right axilla and under the breast. However, she has a large decubitus over the coccyx as well as ischial areas, there is clotted blood there and stools. She reports chronic wounds followed at [facility] in [place]. Here, she was seen by the Wound Care nurse who did not appreciate signs of infection. ASSESSMENT AND PLAN: 1. Hidradenitis suppurative involving the left axilla. Typically antibiotics do not really make a big difference. Mainly would suggest keeping the area clean and facilitating drainage. The only treatment would be a radical resection when there is evidence of severe inflammation and sepsis. It is okay to try doxycycline for the anti- inflammatory effect. 2. Large ischial and maybe coccyx decubitus which are chronic, cannot fully assess due to the soilage with stools and clotted blood but suggest further evaluation by the primary team. 3. I doubt that she has pneumonia. She has on the CT cardiomegaly and left lower lobe segmental atelectasis. 4. Leukocytosis which might be chronic. She is also on steroids. I agree with contact precautions. At this time, no followup, just as needed. Please call if any questions. I discussed with the nurse. PC/KO Demetrio Barahona M.D. Consultation Report [address] [place]. [address] NAME: MELISSA GARDNER : 61 STATUS : ADM IN [facility]#: [id number] AGE: 51 ADM/REG DATE : 07/17/16 MR#: [id number] REPORT SERV DATE: 07/24/16 DICTATED BY: DEMETRIO BARAHONA DATE: 07/24/16 REPORT STATUS : Draft TRANSCRIBED BY: MODL DATE: 07/24/16 / [id number] CC: Cecy Cat M.D.
--- NOTE | ~2016-07-17 | CN ---
Consultation Report [facility] [address] [place]. [address] NAME: MELISSA FREGOSO : 61 STATUS : ADM IN PAT#: [id number] AGE: 51 ADM/REG DATE : 07/17/16 MR#: [id number] REPORT SERV DATE: 07/18/16 DICTATED BY: YULIA CONCEPCION DATE: 07/18/16 REPORT STATUS : Draft TRANSCRIBED BY: MODL DATE: 07/18/16 NEPHROLOGY CONSULTATION DATE OF CONSULTATION: 07/18/2016 REASON FOR CONSULTATION: End-stage renal disease, on hemodialysis. HISTORY OF PRESENT ILLNESS: Ms Fregoso is a 51-year-old female with end-stage renal disease, morbid obesity, history of hypertension, tobacco use, GERD, and monoclonal gammopathy, who was admitted by Dr. Alice quiñones for clotted dialysis access. She underwent an open thrombectomy, fistulogram, and angioplasty of arterial anastomosis of AV graft. Postoperatively, she developed hypotension and hypoxemia, and was transferred to the CCU. She remains on Ric-Synephrine at this time. She is awake and alert, and has no acute complaints. She last had dialysis on Thursday. Her chest x-ray this morning showed no acute cardiopulmonary abnormalities. Labs yesterday showed a BUN and creatinine of 26 and 4.18, with a potassium of 5.0. PAST MEDICAL HISTORY: 1. ESRD, on hemodialysis, with [facility]. 2. Hypertension. 3. Morbid obesity. 4. Tobacco use. 5. GERD. PAST SURGICAL HISTORY: AV graft placement. ALLERGIES: NO KNOWN DRUG ALLERGIES. SOCIAL HISTORY: The patient is single and lives with the significant other. She is unemployed and has limited mobility, and apparent transportation challenges. She is a former smoker. Quit in 2012. No current alcohol use. No history of recreational drug use. ALLERGIES: SULFA DRUGS. HOME MEDICATIONS: 1. Albuterol 2 puffs every 4 hours. 2. Amlodipine 5 daily. 3. Ascorbic acid 500 daily. 4. Baclofen 10 b.i.d. 5. Lexapro 20 daily. 6. Fluticasone 1 puff daily. 7. Keppra 250 twice a day. REVIEW OF SYSTEMS: Consultation Report [facility] [address] [place]. [address] NAME: MELISSA FREGOSO : 61 STATUS : ADM IN PAT#: [id number] AGE: 51 ADM/REG DATE : 07/17/16 MR#: [id number] REPORT SERV DATE: 07/18/16 DICTATED BY: YULIA CONCEPCION DATE: 07/18/16 REPORT STATUS : Draft TRANSCRIBED BY: KO DATE: 07/18/16 All systems reviewed, negative excluding those mentioned and highlighted in the history of present illness. PHYSICAL EXAMINATION: VITAL SIGNS: Blood pressure 89/52, O2 saturation 100%, temperature 97.9, pulse 66, and respiratory rate 18. GENERAL: This is a chronically ill, obese female, resting comfortably, in no acute distress. HEENT: Normocephalic, atraumatic. Oropharynx is clear. No exudate. NECK: Supple. No JVD or thyromegaly. No carotid bruits. Trachea is midline. No stridor. CARDIOVASCULAR: Regular rate and rhythm. S1, S2. Without rubs or gallops. Point of maximal impulse nondisplaced. RESPIRATORY: Coarse breath sounds. No tachypnea. No accessory muscles in use. GI: Abdomen is soft, nontender, and obese. No hepatosplenomegaly. No rebound, guarding, or signs of peritonitis. EXTREMITIES: No cyanosis or clubbing. She has 1 to 2+ pitting edema in both lower extremities. LYMPHATICS: No supraclavicular or cervical adenopathy. SKIN: No obvious rash or breakdown. LABS AND DIAGNOSTIC DATA: Chest x-ray, as noted is clear. Sodium 132, potassium 5.0, chloride 98, bicarb 26, BUN 26, creatinine 4.18, glucose 80, and calcium 8.7. ASSESSMENT: 1. End-stage renal disease, on hemodialysis; Thursday, Thursday, and Thursday. Last dialysis was on Thursday. 2. Hypotension of unclear etiology. She is on p.o. steroids at home. 3. History of seizures, on Keppra. 4. Morbid obesity. PLAN: 1. Check labs today. I would like to get her off Ric-Synephrine prior to initiation of dialysis as I am sure her hypotension will only worsen. 2. Check echocardiogram. 3. Check blood cultures. 4. Supportive care. JENIFER/KO Yulia Concepcion M.D. / [id number] Consultation Report [facility] [place] [address] [place]. [address] NAME: MELISSA FREGOSO : 61 STATUS : ADM IN PAT#: [id number] AGE: 51 ADM/REG DATE : 07/17/16 MR#: [id number] REPORT SERV DATE: 07/18/16 DICTATED BY: YULIA CONCEPCION DATE: 07/18/16 REPORT STATUS : Draft TRANSCRIBED BY: MODL DATE: 07/18/16 CC: Cecy Cat M.D.
--- NOTE | ~2016-07-17 | OP ---
Record Of Operation [facility] [address] [place]. [address] NAME: MELISSA GARDNER : 61 STATUS : ADM IN PAT#: [id number] AGE: 51 ADM/REG DATE : 07/17/16 MR#: [id number] REPORT SERV DATE: 07/18/16 DICTATED BY: PATRICK JENKINS DATE: 07/17/16 REPORT STATUS : Draft TRANSCRIBED BY: MODL DATE: 07/17/16 DATE OF PROCEDURE: 07/17/2016 PREOPERATIVE DIAGNOSIS: Clotted left arm arteriovenous graft. POSTOPERATIVE DIAGNOSIS: Clotted left arm arteriovenous graft. PROCEDURE: 1. Open thrombectomy left arm arteriovenous graft. 2. Fistulogram. 3. Angioplasty, arterial anastomosis arteriovenous graft. SURGEON: Patrick Jenkins M.D. ANESTHESIA: General. COMPLICATIONS: None. BLOOD LOSS: 100 mL. HISTORY: The patient is a 51-year-old female with a left arm AV graft. This was noted be clotted early in the week. She was felt to benefit from thrombectomy. This was discussed with the patient in detail. She expressed understanding and desire to proceed. DESCRIPTION OF PROCEDURE: The patient was taken to the operating room and placed in the supine position. She was given IV sedation without complication. Left arm was prepped and draped in sterile fashion. Due to anesthesia concerns, LMA was placed without complication. She was given 5000 units of heparin intravenously. 1% lidocaine was infiltrated in the skin and subcutaneous tissue on the graft in the mid upper arm. Transverse incision was created. Dissection performed to identify the graft which was freed circumferentially right side of vessel loop. An 11 blade was used to create a graftotomy. The graft was thrombosed. A 4 Natalia was passed into the arterial portion multiple times removing thrombus and restoring inflow. The arterial portion was clamped. The attention was turned to the venous portion and a 4 Natalia passed proximally multiple times removing a large amount of thrombus restoring strong back bleeding. A sheath was placed and venogram performed of the venous portion of the AV graft. This was widely patent with a patent anastomosis and patent axillary, subclavian, innominate, and superior vena cava. The venous portion was clamped, the attention was turned to the arterial portion and venogram performed showing the graft to have the stenosis near the anastomosis. A 5 x 40 balloon was used to angioplasty the area of stenosis. A post fistulogram shows residual irregularity. A 4 Natalia was passed multiple times removing a small amount of thrombus. Repeat fistulogram once again showed residual irregularity. A 5 mm balloon was used to re-angioplasty the area at the anastomosis and thrombectomy was performed once again. Post fistulogram now shows the arterial portion to be widely patent with no stenosis and prompt flow. Arteriogram into the forearm shows patent radial and normal arteries to the wrist with prompt flow and no clot. This was felt to be an excellent result. The arterial portion was clamped and the Record Of Operation [facility] [address] [place]. [address] NAME: MELISSA GARDNER : 61 STATUS : ADM IN [facility]#: [id number] AGE: 51 ADM/REG DATE : 07/17/16 MR#: [id number] REPORT SERV DATE: 07/18/16 DICTATED BY: PATRICK JENKINS DATE: 07/17/16 REPORT STATUS : Draft TRANSCRIBED BY: KO DATE: 07/17/16 graftotomy closed with running 5-0 Prolene suture. With flow restored, there was a thrill in the graft and a strong Doppler bruit as well. The patient had normal radial signals at the wrist as well. Once hemostasis was assured. The subcutaneous tissue was closed with 0 Vicryl suture. Skin closed with 4-0 Monocryl suture and Dermabond dressing applied. The patient tolerated the procedure well. She will be taken to recovery room and discharged to home when stable. LOUIS/KO Patrick Jenkins M.D. / [id number] CC: aPtrick Jenkins M.D.
[~2016-07-17 14:31] MED LIST: BREO ELLIPTA INH; KEPPRA250 PO; LEXAPRO20 PO; LIOR10 PO; NORV5 PO; PRILO PO; RENAPLEX PO; VENTOLIN HFA INH; VITC500 PO; [UNRECOGNIZED DRUG - OTHER] PO
[2016-07-17 15:20] LABS: HEMATOCRIT 38.6 % (36.0-48.0); HEMOGLOBIN 12.1 g/dL (12.0-16.0)
[2016-07-17 15:32] LABS: BUN (BLOOD UREA NITROGEN) 26 MG/DL (6-23); CALCIUM, SERUM 8.7 MG/DL (8.5-10.4); CHLORIDE, SERUM 98 MMOL/L (96-112); CO2 (CARBON DIOXIDE) 26 MMOL/L (24-34); CREATININE 4.18 MG/DL (0.55-1.02); GFR AFRICAN AMERICAN 13 ML/MIN (>=60); GFR NON AFRICAN AMERICAN 11 ML/MIN (>=60); GLUCOSE, SERUM 80 MG/DL (60-99); SODIUM, SERUM 132 MMOL/L (135-148)
[2016-07-18 00:30] LABS: CPK 44 U/L (0-200); TROPONIN I <0.02 NG/ML (<0.05)
[2016-07-18 00:31] LABS: CK-MB 0.7 NG/ML
[2016-07-18 11:02] LABS: CALCIUM, SERUM 8.1 MG/DL (8.5-10.4); CHLORIDE, SERUM 97 MMOL/L (96-112); POTASSIUM, SERUM 5.2 MMOL/L (3.5-5.3); SODIUM, SERUM 136 MMOL/L (135-148)
[2016-07-18 11:03] LABS: BUN (BLOOD UREA NITROGEN) 30 MG/DL (6-23); CO2 (CARBON DIOXIDE) 31 MMOL/L (24-34); CREATININE 4.76 MG/DL (0.55-1.02); GFR AFRICAN AMERICAN 11 ML/MIN (>=60); GFR NON AFRICAN AMERICAN 10 ML/MIN (>=60); GLUCOSE, SERUM 128 MG/DL (60-99)
[2016-07-19 04:11] LABS: BASOPHILS 0 %; BASOPHILS ABSOLUTE 0.01 10/3/uL (0.0-0.16); EOSINOPHILS 0 %; HEMATOCRIT 36.9 % (36.0-48.0); HEMOGLOBIN 11.2 g/dL (12.0-16.0); IMMATURE GRANULOCYTES 0.9 %; IMMATURE GRANULOCYTES ABSOLUTE 0.19 10/3/uL (0.0-0.11); LYMPHOCYTES 2.9 %; LYMPHOCYTES ABSOLUTE 0.58 10/3/uL (0.67-4.30); MANUAL DIFF NO %; MEAN CORPUS HGB CONC 30.4 g/dL (32.0-36.0); MEAN CORPUSCULAR HEMOGLOB 27.1 pg (26.0-34.0); MEAN CORPUSCULAR VOLUME 89.1 fL (80-100); MEAN PLATELET VOLUME 10.1 fL (9.2-13.0); MONOCYTES 2.4 %; MONOCYTES ABSOLUTE 0.48 10/3/uL (0.21-1.20); NEUTROPHILS 93.8 %; NEUTROPHILS ABSOLUTE 19.03 10/3/uL (2.02-8.40); NUCLEATED RED BLOOD CELLS 0.4 /100WBC (0-0); PLATELET COUNT 311 10/3/uL (150-400); RBC DISTRIBUTION WIDTH 19.8 % (12.0-16.0); RED CELL COUNT 4.14 10/6/uL (4.0-5.6); WHITE BLOOD CELLS 20.3 10/3/uL (4.5-10.5)
[2016-07-19 04:21] LABS: ALBUMIN 2.6 G/DL (3.5-5.0); CHLORIDE, SERUM 99 MMOL/L (96-112); CO2 (CARBON DIOXIDE) 30 MMOL/L (24-34); CREATININE 4.52 MG/DL (0.55-1.02); GFR AFRICAN AMERICAN 12 ML/MIN (>=60); GFR NON AFRICAN AMERICAN 10 ML/MIN (>=60); GLUCOSE, SERUM 152 MG/DL (60-99); POTASSIUM, SERUM 4.7 MMOL/L (3.5-5.3); SODIUM, SERUM 138 MMOL/L (135-148)
[2016-07-19 04:31] LABS: BUN (BLOOD UREA NITROGEN) 25 MG/DL (6-23); PHOSPHORUS, SERUM 5.4 MG/DL (2.5-4.5)
[2016-07-19 10:59] LABS: BASOPHILS 0.1 %; BASOPHILS ABSOLUTE 0.01 10/3/uL (0.0-0.16); EOSINOPHILS 0 %; HEMATOCRIT 34.7 % (36.0-48.0); HEMOGLOBIN 10.5 g/dL (12.0-16.0); IMMATURE GRANULOCYTES 0.7 %; IMMATURE GRANULOCYTES ABSOLUTE 0.12 10/3/uL (0.0-0.11); LYMPHOCYTES 2.8 %; LYMPHOCYTES ABSOLUTE 0.51 10/3/uL (0.67-4.30); MEAN CORPUS HGB CONC 30.3 g/dL (32.0-36.0); MEAN CORPUSCULAR VOLUME 89.2 fL (80-100); MEAN PLATELET VOLUME 10.1 fL (9.2-13.0); MONOCYTES 3.1 %; MONOCYTES ABSOLUTE 0.55 10/3/uL (0.21-1.20); NEUTROPHILS 93.3 %; NEUTROPHILS ABSOLUTE 16.77 10/3/uL (2.02-8.40); NUCLEATED RED BLOOD CELLS 0.4 /100WBC (0-0); PLATELET COUNT 242 10/3/uL (150-400); RBC DISTRIBUTION WIDTH 19.6 % (12.0-16.0); RED CELL COUNT 3.89 10/6/uL (4.0-5.6)
[2016-07-19 11:00] LABS: MANUAL DIFF NO %
[2016-07-19 11:07] LABS: INTERNATIONAL NORMAL RATI 1.3 UNITS (-); PARTIAL THROMBO TIME 33.6 SEC (22.5-37.2); PROTIME (NOT ORD) 15.9 SEC (12.0-14.5)
[2016-07-19 12:40] LABS: FREE T4 1.12 NG/DL (0.76-1.46)
[2016-07-19 15:44] LABS: ALLENS TEST Pos; BE (BASE EXCESS) -1.9 MEQ/L (0 +/- 2.5); CARBOXYHEMOGLOBIN 1.2 % (0-3); DEVICE NC; HCO3 (ACTUAL BICARBONATE) 25.2 MEQ/L (23-27); INSTRUMENT SERIAL # 35151; METHEMOGLOBIN 0.4 % (0-3); O2 CONTENT 15.8 VOL% (18-24); OPERATOR ID 32214; PCO2 (CO2 TENSION) 54 MMHG (35-45); PO2 (O2 TENSION) 78 MMHG (79-93); SAMPLE Arterial; pH 7.29 (7.37-7.43)
[2016-07-19 17:01] LABS: A/G RATIO 0.5 (0.7-1.9); ALBUMIN 2.5 G/DL (3.5-5.0); CALCIUM, SERUM 7.9 MG/DL (8.5-10.4); CHLORIDE, SERUM 100 MMOL/L (96-112); CO2 (CARBON DIOXIDE) 28 MMOL/L (24-34); CREATININE 4.96 MG/DL (0.55-1.02); GFR AFRICAN AMERICAN 11 ML/MIN (>=60); GFR NON AFRICAN AMERICAN 9 ML/MIN (>=60); GLOBULIN 4.8 G/DL (2.5-4.1); GLUCOSE, SERUM 130 MG/DL (60-99); PHOSPHORUS, SERUM 5.1 MG/DL (2.5-4.5); POTASSIUM, SERUM 4.9 MMOL/L (3.5-5.3); SGOT(AST) 9 U/L (5-40); SGPT(ALT) 13 U/L (5-65); SODIUM, SERUM 137 MMOL/L (135-148); TOTAL BILIRUBIN 0.3 MG/DL (0-1.2); TOTAL PROTEIN 7.3 G/DL (6.0-8.5)
[2016-07-19 17:02] LABS: ALKALINE PHOSPHATASE 99 U/L (45-117); BUN (BLOOD UREA NITROGEN) 31 MG/DL (6-23)
[2016-07-20 04:05] LABS: BE (BASE EXCESS) -6.2 MEQ/L (0 +/- 2.5); CARBOXYHEMOGLOBIN 0.7 % (0-3); HCO3 (ACTUAL BICARBONATE) 22.8 MEQ/L (23-27); INSTRUMENT SERIAL # 35151; METHEMOGLOBIN 0.4 % (0-3); PCO2 (CO2 TENSION) 62 MMHG (35-45); PO2 (O2 TENSION) 71 MMHG (79-93); pH 7.18 (7.37-7.43)
[2016-07-20 04:06] LABS: ALLENS TEST Pos; DEVICE NC; HEMOBLOGIN CONTENT 11.8 G/DL (12-16); O2 CONTENT 14.9 VOL% (18-24); OPERATOR ID 13415; SAMPLE Arterial
[2016-07-20 04:43] LABS: BASOPHILS 0.1 %; BASOPHILS ABSOLUTE 0.01 10/3/uL (0.0-0.16); EOSINOPHILS 0 %; HEMATOCRIT 34.1 % (36.0-48.0); HEMOGLOBIN 10.3 g/dL (12.0-16.0); IMMATURE GRANULOCYTES 0.6 %; IMMATURE GRANULOCYTES ABSOLUTE 0.09 10/3/uL (0.0-0.11); LYMPHOCYTES ABSOLUTE 0.73 10/3/uL (0.67-4.30); MEAN CORPUS HGB CONC 30.2 g/dL (32.0-36.0); MEAN CORPUSCULAR HEMOGLOB 26.5 pg (26.0-34.0); MEAN CORPUSCULAR VOLUME 87.7 fL (80-100); MEAN PLATELET VOLUME 10.3 fL (9.2-13.0); MONOCYTES 3.8 %; MONOCYTES ABSOLUTE 0.55 10/3/uL (0.21-1.20); NEUTROPHILS 90.5 %; NEUTROPHILS ABSOLUTE 13.14 10/3/uL (2.02-8.40); NUCLEATED RED BLOOD CELLS 0.5 /100WBC (0-0); PLATELET COUNT 252 10/3/uL (150-400); RBC DISTRIBUTION WIDTH 19.5 % (12.0-16.0); RED CELL COUNT 3.89 10/6/uL (4.0-5.6); WHITE BLOOD CELLS 14.5 10/3/uL (4.5-10.5)
[2016-07-20 04:44] LABS: ALBUMIN 2.4 G/DL (3.5-5.0); BUN (BLOOD UREA NITROGEN) 26 MG/DL (6-23); CALCIUM, SERUM 7.8 MG/DL (8.5-10.4); CHLORIDE, SERUM 100 MMOL/L (96-112); CO2 (CARBON DIOXIDE) 30 MMOL/L (24-34); CREATININE 3.61 MG/DL (0.55-1.02); GFR AFRICAN AMERICAN 16 ML/MIN (>=60); GFR NON AFRICAN AMERICAN 14 ML/MIN (>=60); GLUCOSE, SERUM 135 MG/DL (60-99); PHOSPHORUS, SERUM 3.9 MG/DL (2.5-4.5); POTASSIUM, SERUM 4.9 MMOL/L (3.5-5.3); SODIUM, SERUM 136 MMOL/L (135-148)
[2016-07-20 04:46] LABS: MANUAL DIFF NO %
[2016-07-20 08:02] LABS: PROCALCITONIN 0.32 ng/mL (<0.5)
[2016-07-20 09:35] LABS: CARBOXYHEMOGLOBIN 1.4 % (0-3); HCO3 (ACTUAL BICARBONATE) 27.3 MEQ/L (23-27); HEMOBLOGIN CONTENT 11.8 G/DL (12-16); INSTRUMENT SERIAL # 8083; METHEMOGLOBIN 0.1 % (0-3); O2 CONTENT 15.4 VOL% (18-24); PCO2 (CO2 TENSION) 64 MMHG (35-45); PO2 (O2 TENSION) 75 MMHG (79-93); SAMPLE Arterial; pH 7.25 (7.37-7.43)
[2016-07-20 09:36] LABS: ALLENS TEST Pos
[2016-07-20 10:44] LABS: BASOPHILS 0.1 %; BASOPHILS ABSOLUTE 0.01 10/3/uL (0.0-0.16); EOSINOPHILS 0 %; HEMATOCRIT 35.5 % (36.0-48.0); HEMOGLOBIN 10.8 g/dL (12.0-16.0); IMMATURE GRANULOCYTES 0.7 %; IMMATURE GRANULOCYTES ABSOLUTE 0.12 10/3/uL (0.0-0.11); LYMPHOCYTES 4.4 %; LYMPHOCYTES ABSOLUTE 0.74 10/3/uL (0.67-4.30); MEAN CORPUS HGB CONC 30.4 g/dL (32.0-36.0); MEAN CORPUSCULAR HEMOGLOB 26.6 pg (26.0-34.0); MEAN CORPUSCULAR VOLUME 87.4 fL (80-100); MEAN PLATELET VOLUME 9.9 fL (9.2-13.0); MONOCYTES 4.9 %; MONOCYTES ABSOLUTE 0.81 10/3/uL (0.21-1.20); NEUTROPHILS 89.9 %; NEUTROPHILS ABSOLUTE 15.02 10/3/uL (2.02-8.40); NUCLEATED RED BLOOD CELLS 0.8 /100WBC (0-0); PLATELET COUNT 274 10/3/uL (150-400); RBC DISTRIBUTION WIDTH 19.5 % (12.0-16.0); RED CELL COUNT 4.06 10/6/uL (4.0-5.6); WHITE BLOOD CELLS 16.7 10/3/uL (4.5-10.5)
[2016-07-20 10:46] LABS: MANUAL DIFF NO %
[2016-07-20 10:51] LABS: BUN (BLOOD UREA NITROGEN) 20 MG/DL (6-23); CALCIUM, SERUM 7.8 MG/DL (8.5-10.4); CHLORIDE, SERUM 99 MMOL/L (96-112); CO2 (CARBON DIOXIDE) 27 MMOL/L (24-34); CREATININE 2.81 MG/DL (0.55-1.02); GFR AFRICAN AMERICAN 21 ML/MIN (>=60); GFR NON AFRICAN AMERICAN 18 ML/MIN (>=60); GLUCOSE, SERUM 126 MG/DL (60-99); PHOSPHORUS, SERUM 3.3 MG/DL (2.5-4.5); POTASSIUM, SERUM 4.8 MMOL/L (3.5-5.3); SODIUM, SERUM 135 MMOL/L (135-148)
[2016-07-20 16:36] LABS: BASOPHILS 0.1 %; BASOPHILS ABSOLUTE 0.01 10/3/uL (0.0-0.16); EOSINOPHILS 0.1 %; EOSINOPHILS ABSOLUTE 0.01 10/3/uL (0.0-0.53); HEMOGLOBIN 10.7 g/dL (12.0-16.0); IMMATURE GRANULOCYTES 0.6 %; LYMPHOCYTES 8.6 %; LYMPHOCYTES ABSOLUTE 1.45 10/3/uL (0.67-4.30); MEAN CORPUS HGB CONC 30.6 g/dL (32.0-36.0); MEAN CORPUSCULAR HEMOGLOB 26.5 pg (26.0-34.0); MEAN CORPUSCULAR VOLUME 86.6 fL (80-100); MEAN PLATELET VOLUME 10.1 fL (9.2-13.0); MONOCYTES 6.5 %; NEUTROPHILS 84.1 %; PLATELET COUNT 265 10/3/uL (150-400); RBC DISTRIBUTION WIDTH 19.6 % (12.0-16.0); RED CELL COUNT 4.04 10/6/uL (4.0-5.6); WHITE BLOOD CELLS 16.9 10/3/uL (4.5-10.5)
[2016-07-20 16:38] LABS: MANUAL DIFF NO %
[2016-07-20 16:43] LABS: BUN (BLOOD UREA NITROGEN) 18 MG/DL (6-23); CALCIUM, SERUM 7.7 MG/DL (8.5-10.4); CHLORIDE, SERUM 98 MMOL/L (96-112); CO2 (CARBON DIOXIDE) 26 MMOL/L (24-34); CREATININE 2.48 MG/DL (0.55-1.02); GFR AFRICAN AMERICAN 25 ML/MIN (>=60); GFR NON AFRICAN AMERICAN 21 ML/MIN (>=60); GLUCOSE, SERUM 121 MG/DL (60-99); PHOSPHORUS, SERUM 2.5 MG/DL (2.5-4.5); POTASSIUM, SERUM 4.3 MMOL/L (3.5-5.3); SODIUM, SERUM 137 MMOL/L (135-148)
[2016-07-20 16:50] LABS: LYMPHOCYTES 12 %; LYMPHOCYTES ABSOLUTE (CALC) 2.03 10/3/uL (0.67-4.30); MONOCYTES 6 %; MONOCYTES ABSOLUTE (CALC) 1.01 10/3/uL (0.21-1.20); NEUTROPHILS ABSOLUTE (CALC) 13.86 10/3/uL (2.02-8.40); SEGMENTED NEUTROPHIL (0) 82 %; TOTAL NUCLEATED CELLS 100
[2016-07-20 16:53] LABS: ANISOCYTOSIS 1+ (5-10/OIF) (0-5/OIF); PLATELET ESTIMATE ADQ (ADEQUATE)
[2016-07-20 16:54] LABS: GIANT PLATELET RARE; POLYCHROMASIA 1+ (2-5/OIF) (0-1/OIF)
[2016-07-20 23:07] LABS: BUN (BLOOD UREA NITROGEN) 17 MG/DL (6-23); CALCIUM, SERUM 7.5 MG/DL (8.5-10.4); CHLORIDE, SERUM 98 MMOL/L (96-112); CO2 (CARBON DIOXIDE) 28 MMOL/L (24-34); CREATININE 2.23 MG/DL (0.55-1.02); GFR AFRICAN AMERICAN 28 ML/MIN (>=60); GFR NON AFRICAN AMERICAN 24 ML/MIN (>=60); GLUCOSE, SERUM 127 MG/DL (60-99); PHOSPHORUS, SERUM 2.7 MG/DL (2.5-4.5); POTASSIUM, SERUM 4.3 MMOL/L (3.5-5.3); SODIUM, SERUM 136 MMOL/L (135-148)
[2016-07-20 23:21] LABS: BASOPHILS 0.1 %; BASOPHILS ABSOLUTE 0.01 10/3/uL (0.0-0.16); EOSINOPHILS 0 %; HEMOGLOBIN 10.2 g/dL (12.0-16.0); IMMATURE GRANULOCYTES 0.7 %; IMMATURE GRANULOCYTES ABSOLUTE 0.13 10/3/uL (0.0-0.11); LYMPHOCYTES 4.7 %; LYMPHOCYTES ABSOLUTE 0.84 10/3/uL (0.67-4.30); MEAN CORPUS HGB CONC 30.9 g/dL (32.0-36.0); MEAN CORPUSCULAR HEMOGLOB 26.6 pg (26.0-34.0); MEAN CORPUSCULAR VOLUME 86.2 fL (80-100); MEAN PLATELET VOLUME 10.8 fL (9.2-13.0); MONOCYTES 5.8 %; MONOCYTES ABSOLUTE 1.04 10/3/uL (0.21-1.20); NEUTROPHILS 88.7 %; NEUTROPHILS ABSOLUTE 15.97 10/3/uL (2.02-8.40); NUCLEATED RED BLOOD CELLS 1.3 /100WBC (0-0); PLATELET COUNT 225 10/3/uL (150-400); RBC DISTRIBUTION WIDTH 19.6 % (12.0-16.0); RED CELL COUNT 3.83 10/6/uL (4.0-5.6)
[2016-07-20 23:34] LABS: MANUAL DIFF NO %
[2016-07-21 00:01] LABS: ANISOCYTOSIS 1+ (5-10/OIF) (0-5/OIF); PLATELET ESTIMATE ADQ (ADEQUATE)
[2016-07-21 00:02] LABS: POIKILOCYTOSIS 1+ (5-10/OIF) (0-5/OIF)
[2016-07-21 03:41] LABS: ALLENS TEST Pos; BE (BASE EXCESS) -3.3 MEQ/L (0 +/- 2.5); CARBOXYHEMOGLOBIN 0.7 % (0-3); DEVICE NC; HCO3 (ACTUAL BICARBONATE) 23.2 MEQ/L (23-27); INSTRUMENT SERIAL # 35151; METHEMOGLOBIN 0.5 % (0-3); O2 CONTENT 14.4 VOL% (18-24); OPERATOR ID 23712; PCO2 (CO2 TENSION) 48 MMHG (35-45); PO2 (O2 TENSION) 76 MMHG (79-93); SAMPLE Arterial
[2016-07-21 04:45] LABS: BUN (BLOOD UREA NITROGEN) 14 MG/DL (6-23); CALCIUM, SERUM 7.7 MG/DL (8.5-10.4); CHLORIDE, SERUM 99 MMOL/L (96-112); CO2 (CARBON DIOXIDE) 27 MMOL/L (24-34); CREATININE 1.84 MG/DL (0.55-1.02); GFR AFRICAN AMERICAN 36 ML/MIN (>=60); GFR NON AFRICAN AMERICAN 31 ML/MIN (>=60); GLUCOSE, SERUM 131 MG/DL (60-99); PHOSPHORUS, SERUM 2.4 MG/DL (2.5-4.5); POTASSIUM, SERUM 4.4 MMOL/L (3.5-5.3); SODIUM, SERUM 136 MMOL/L (135-148)
[2016-07-21 04:52] LABS: BASOPHILS 0.1 %; BASOPHILS ABSOLUTE 0.01 10/3/uL (0.0-0.16); EOSINOPHILS 0 %; HEMATOCRIT 32.3 % (36.0-48.0); IMMATURE GRANULOCYTES 0.7 %; IMMATURE GRANULOCYTES ABSOLUTE 0.11 10/3/uL (0.0-0.11); LYMPHOCYTES 6.1 %; LYMPHOCYTES ABSOLUTE 0.91 10/3/uL (0.67-4.30); MEAN CORPUSCULAR HEMOGLOB 26.7 pg (26.0-34.0); MEAN CORPUSCULAR VOLUME 86.1 fL (80-100); MEAN PLATELET VOLUME 10.6 fL (9.2-13.0); MONOCYTES 5.3 %; MONOCYTES ABSOLUTE 0.79 10/3/uL (0.21-1.20); NEUTROPHILS 87.8 %; NEUTROPHILS ABSOLUTE 13.19 10/3/uL (2.02-8.40); NUCLEATED RED BLOOD CELLS 0.4 /100WBC (0-0); PLATELET COUNT 229 10/3/uL (150-400); RBC DISTRIBUTION WIDTH 19.6 % (12.0-16.0); RED CELL COUNT 3.75 10/6/uL (4.0-5.6)
[2016-07-21 05:01] LABS: MANUAL DIFF NO %
[2016-07-21 10:22] LABS: BASOPHILS 0.1 %; BASOPHILS ABSOLUTE 0.01 10/3/uL (0.0-0.16); EOSINOPHILS 0 %; HEMATOCRIT 30.9 % (36.0-48.0); HEMOGLOBIN 9.7 g/dL (12.0-16.0); IMMATURE GRANULOCYTES 0.5 %; IMMATURE GRANULOCYTES ABSOLUTE 0.07 10/3/uL (0.0-0.11); LYMPHOCYTES 5.6 %; LYMPHOCYTES ABSOLUTE 0.75 10/3/uL (0.67-4.30); MEAN CORPUS HGB CONC 31.4 g/dL (32.0-36.0); MEAN CORPUSCULAR HEMOGLOB 26.4 pg (26.0-34.0); MEAN CORPUSCULAR VOLUME 84.2 fL (80-100); MEAN PLATELET VOLUME 9.7 fL (9.2-13.0); MONOCYTES 5.1 %; MONOCYTES ABSOLUTE 0.68 10/3/uL (0.21-1.20); NEUTROPHILS 88.7 %; NEUTROPHILS ABSOLUTE 11.87 10/3/uL (2.02-8.40); PLATELET COUNT 181 10/3/uL (150-400); RBC DISTRIBUTION WIDTH 19.6 % (12.0-16.0); RED CELL COUNT 3.67 10/6/uL (4.0-5.6); WHITE BLOOD CELLS 13.4 10/3/uL (4.5-10.5)
[2016-07-21 10:23] LABS: MANUAL DIFF NO %
[2016-07-21 10:35] LABS: BUN (BLOOD UREA NITROGEN) 12 MG/DL (6-23); CALCIUM, SERUM 7.6 MG/DL (8.5-10.4); CHLORIDE, SERUM 99 MMOL/L (96-112); CO2 (CARBON DIOXIDE) 27 MMOL/L (24-34); CREATININE 1.58 MG/DL (0.55-1.02); GFR AFRICAN AMERICAN 43 ML/MIN (>=60); GFR NON AFRICAN AMERICAN 37 ML/MIN (>=60); GLUCOSE, SERUM 136 MG/DL (60-99); PHOSPHORUS, SERUM 2.8 MG/DL (2.5-4.5); POTASSIUM, SERUM 4.2 MMOL/L (3.5-5.3); SODIUM, SERUM 137 MMOL/L (135-148)
[2016-07-21 15:59] LABS: BUN (BLOOD UREA NITROGEN) 10 MG/DL (6-23); CALCIUM, SERUM 7.9 MG/DL (8.5-10.4); CHLORIDE, SERUM 101 MMOL/L (96-112); CO2 (CARBON DIOXIDE) 27 MMOL/L (24-34); CREATININE 1.44 MG/DL (0.55-1.02); GFR AFRICAN AMERICAN 48 ML/MIN (>=60); GFR NON AFRICAN AMERICAN 41 ML/MIN (>=60); GLUCOSE, SERUM 145 MG/DL (60-99); PHOSPHORUS, SERUM 2.4 MG/DL (2.5-4.5); POTASSIUM, SERUM 4.3 MMOL/L (3.5-5.3); SODIUM, SERUM 137 MMOL/L (135-148)
[2016-07-21 16:28] LABS: BASOPHILS 0.1 %; BASOPHILS ABSOLUTE 0.01 10/3/uL (0.0-0.16); EOSINOPHILS 0 %; HEMATOCRIT 32.2 % (36.0-48.0); HEMOGLOBIN 10.1 g/dL (12.0-16.0); IMMATURE GRANULOCYTES 0.6 %; IMMATURE GRANULOCYTES ABSOLUTE 0.08 10/3/uL (0.0-0.11); LYMPHOCYTES 5.7 %; LYMPHOCYTES ABSOLUTE 0.82 10/3/uL (0.67-4.30); MEAN CORPUS HGB CONC 31.4 g/dL (32.0-36.0); MEAN CORPUSCULAR HEMOGLOB 26.6 pg (26.0-34.0); MEAN PLATELET VOLUME 10.6 fL (9.2-13.0); MONOCYTES 5.5 %; NEUTROPHILS 88.1 %; PLATELET COUNT 177 10/3/uL (150-400); RBC DISTRIBUTION WIDTH 19.4 % (12.0-16.0); RED CELL COUNT 3.79 10/6/uL (4.0-5.6); WHITE BLOOD CELLS 14.5 10/3/uL (4.5-10.5)
[2016-07-21 16:31] LABS: MANUAL DIFF NO %
[2016-07-21 16:56] LABS: PLATELET ESTIMATE ADQ (ADEQUATE); STOMATOCYTES 1+ (3-10/OIF) (0-2/OIF); TARGET CELLS FEW (3-10/OIF) (0-1/OIF)
[2016-07-21 16:57] LABS: ANISOCYTOSIS 1+ (5-10/OIF) (0-5/OIF); POIKILOCYTOSIS 1+ (5-10/OIF) (0-5/OIF)
[2016-07-21 22:28] LABS: BASOPHILS 0.1 %; BASOPHILS ABSOLUTE 0.01 10/3/uL (0.0-0.16); EOSINOPHILS 0 %; HEMATOCRIT 31.8 % (36.0-48.0); IMMATURE GRANULOCYTES 0.6 %; IMMATURE GRANULOCYTES ABSOLUTE 0.08 10/3/uL (0.0-0.11); LYMPHOCYTES 6.6 %; LYMPHOCYTES ABSOLUTE 0.94 10/3/uL (0.67-4.30); MEAN CORPUS HGB CONC 31.4 g/dL (32.0-36.0); MEAN CORPUSCULAR HEMOGLOB 26.5 pg (26.0-34.0); MEAN CORPUSCULAR VOLUME 84.4 fL (80-100); MEAN PLATELET VOLUME 9.4 fL (9.2-13.0); MONOCYTES 6.3 %; NEUTROPHILS 86.4 %; NEUTROPHILS ABSOLUTE 12.33 10/3/uL (2.02-8.40); NUCLEATED RED BLOOD CELLS 0.6 /100WBC (0-0); PLATELET COUNT 178 10/3/uL (150-400); RBC DISTRIBUTION WIDTH 19.5 % (12.0-16.0); RED CELL COUNT 3.77 10/6/uL (4.0-5.6); WHITE BLOOD CELLS 14.3 10/3/uL (4.5-10.5)
[2016-07-21 22:30] LABS: MANUAL DIFF NO %
[2016-07-21 22:40] LABS: BUN (BLOOD UREA NITROGEN) 9 MG/DL (6-23); CALCIUM, SERUM 8.1 MG/DL (8.5-10.4); CHLORIDE, SERUM 101 MMOL/L (96-112); CO2 (CARBON DIOXIDE) 27 MMOL/L (24-34); CREATININE 1.24 MG/DL (0.55-1.02); GFR AFRICAN AMERICAN 57 ML/MIN (>=60); GFR NON AFRICAN AMERICAN 50 ML/MIN (>=60); GLUCOSE, SERUM 135 MG/DL (60-99); POTASSIUM, SERUM 4.2 MMOL/L (3.5-5.3); SODIUM, SERUM 138 MMOL/L (135-148)
[2016-07-21 23:01] LABS: ANISOCYTOSIS 1+ (5-10/OIF) (0-5/OIF); PLATELET ESTIMATE ADQ (ADEQUATE); TEARDROP SHAPED RBCS FEW (3-10/OIF)
[2016-07-22 03:32] LABS: BE (BASE EXCESS) -2.4 MEQ/L (0 +/- 2.5); CARBOXYHEMOGLOBIN 0.9 % (0-3); DEVICE NRB; HCO3 (ACTUAL BICARBONATE) 24.1 MEQ/L (23-27); HEMOBLOGIN CONTENT 11.2 G/DL (12-16); INSTRUMENT SERIAL # 35151; METHEMOGLOBIN 0.5 % (0-3); PCO2 (CO2 TENSION) 49 MMHG (35-45); PO2 (O2 TENSION) 87 MMHG (79-93); SAMPLE Arterial; pH 7.31 (7.37-7.43)
[2016-07-22 04:18] LABS: BASOPHILS 0.1 %; BASOPHILS ABSOLUTE 0.01 10/3/uL (0.0-0.16); EOSINOPHILS 0 %; HEMATOCRIT 32.6 % (36.0-48.0); HEMOGLOBIN 10.2 g/dL (12.0-16.0); IMMATURE GRANULOCYTES 0.5 %; IMMATURE GRANULOCYTES ABSOLUTE 0.07 10/3/uL (0.0-0.11); LYMPHOCYTES ABSOLUTE 1.06 10/3/uL (0.67-4.30); MANUAL DIFF NO %; MEAN CORPUS HGB CONC 31.3 g/dL (32.0-36.0); MEAN CORPUSCULAR HEMOGLOB 26.5 pg (26.0-34.0); MEAN CORPUSCULAR VOLUME 84.7 fL (80-100); MEAN PLATELET VOLUME 10.8 fL (9.2-13.0); MONOCYTES ABSOLUTE 0.79 10/3/uL (0.21-1.20); NEUTROPHILS 85.4 %; NEUTROPHILS ABSOLUTE 11.27 10/3/uL (2.02-8.40); NUCLEATED RED BLOOD CELLS 0.3 /100WBC (0-0); PLATELET COUNT 195 10/3/uL (150-400); RBC DISTRIBUTION WIDTH 19.4 % (12.0-16.0); RED CELL COUNT 3.85 10/6/uL (4.0-5.6); WHITE BLOOD CELLS 13.2 10/3/uL (4.5-10.5)
[2016-07-22 04:29] LABS: A/G RATIO 0.6 (0.7-1.9); ALBUMIN 2.7 G/DL (3.5-5.0); ALKALINE PHOSPHATASE 88 U/L (45-117); BUN (BLOOD UREA NITROGEN) 8 MG/DL (6-23); CALCIUM, SERUM 7.9 MG/DL (8.5-10.4); CHLORIDE, SERUM 99 MMOL/L (96-112); CO2 (CARBON DIOXIDE) 28 MMOL/L (24-34); CREATININE 1.15 MG/DL (0.55-1.02); GFR AFRICAN AMERICAN 63 ML/MIN (>=60); GFR NON AFRICAN AMERICAN 54 ML/MIN (>=60); GLOBULIN 4.2 G/DL (2.5-4.1); GLUCOSE, SERUM 123 MG/DL (60-99); PHOSPHORUS, SERUM 3.3 MG/DL (2.5-4.5); POTASSIUM, SERUM 4.1 MMOL/L (3.5-5.3); SGOT(AST) 27 U/L (5-40); SGPT(ALT) 46 U/L (5-65); SODIUM, SERUM 138 MMOL/L (135-148); TOTAL BILIRUBIN 0.6 MG/DL (0-1.2); TOTAL PROTEIN 6.9 G/DL (6.0-8.5)
[2016-07-22 04:40] LABS: ANISOCYTOSIS 1+ (5-10/OIF) (0-5/OIF); BAND NEUTROPHILS 5 %; HYPOCHROMIA 1+ (3-10/OIF) (0-2/OIF); LYMPHOCYTES 7 %; LYMPHOCYTES ABSOLUTE (CALC) 0.92 10/3/uL (0.67-4.30); MONOCYTES 7 %; MONOCYTES ABSOLUTE (CALC) 0.92 10/3/uL (0.21-1.20); NEUTROPHILS ABSOLUTE (CALC) 11.35 10/3/uL (2.02-8.40); PLATELET ESTIMATE ADQ (ADEQUATE); POLYCHROMASIA 1+ (2-5/OIF) (0-1/OIF); SEGMENTED NEUTROPHIL (0) 81 %; TARGET CELLS OCC (1-2/OIF) (0-1/OIF); TOTAL NUCLEATED CELLS 100
[2016-07-22 10:11] LABS: BASOPHILS 0.1 %; BASOPHILS ABSOLUTE 0.01 10/3/uL (0.0-0.16); EOSINOPHILS 0 %; HEMATOCRIT 34.7 % (36.0-48.0); HEMOGLOBIN 10.8 g/dL (12.0-16.0); IMMATURE GRANULOCYTES 0.6 %; IMMATURE GRANULOCYTES ABSOLUTE 0.08 10/3/uL (0.0-0.11); LYMPHOCYTES 6.9 %; LYMPHOCYTES ABSOLUTE 0.93 10/3/uL (0.67-4.30); MANUAL DIFF NO %; MEAN CORPUS HGB CONC 31.1 g/dL (32.0-36.0); MEAN CORPUSCULAR HEMOGLOB 26.4 pg (26.0-34.0); MEAN CORPUSCULAR VOLUME 84.8 fL (80-100); MEAN PLATELET VOLUME 9.6 fL (9.2-13.0); MONOCYTES 7.1 %; MONOCYTES ABSOLUTE 0.95 10/3/uL (0.21-1.20); NEUTROPHILS 85.3 %; NEUTROPHILS ABSOLUTE 11.42 10/3/uL (2.02-8.40); PLATELET COUNT 187 10/3/uL (150-400); RBC DISTRIBUTION WIDTH 19.4 % (12.0-16.0); RED CELL COUNT 4.09 10/6/uL (4.0-5.6); WHITE BLOOD CELLS 13.4 10/3/uL (4.5-10.5)
[2016-07-22 10:23] LABS: BUN (BLOOD UREA NITROGEN) 7 MG/DL (6-23); CALCIUM, SERUM 8.4 MG/DL (8.5-10.4); CHLORIDE, SERUM 98 MMOL/L (96-112); CO2 (CARBON DIOXIDE) 26 MMOL/L (24-34); CREATININE 1.03 MG/DL (0.55-1.02); GFR AFRICAN AMERICAN 72 ML/MIN (>=60); GFR NON AFRICAN AMERICAN 62 ML/MIN (>=60); PHOSPHORUS, SERUM 2.5 MG/DL (2.5-4.5); SODIUM, SERUM 136 MMOL/L (135-148)
[2016-07-22 10:24] LABS: GLUCOSE, SERUM 86 MG/DL (60-99)
[2016-07-22 16:43] LABS: BUN (BLOOD UREA NITROGEN) 7 MG/DL (6-23); CALCIUM, SERUM 8.4 MG/DL (8.5-10.4); CHLORIDE, SERUM 100 MMOL/L (96-112); CO2 (CARBON DIOXIDE) 28 MMOL/L (24-34); CREATININE 1.16 MG/DL (0.55-1.02); GFR AFRICAN AMERICAN 62 ML/MIN (>=60); GFR NON AFRICAN AMERICAN 54 ML/MIN (>=60); PHOSPHORUS, SERUM 2.9 MG/DL (2.5-4.5); POTASSIUM, SERUM 3.9 MMOL/L (3.5-5.3); SODIUM, SERUM 137 MMOL/L (135-148)
[2016-07-22 16:45] LABS: GLUCOSE, SERUM 133 MG/DL (60-99)
[2016-07-22 16:48] LABS: BASOPHILS 0.1 %; BASOPHILS ABSOLUTE 0.02 10/3/uL (0.0-0.16); EOSINOPHILS 0.1 %; EOSINOPHILS ABSOLUTE 0.02 10/3/uL (0.0-0.53); HEMATOCRIT 36.8 % (36.0-48.0); HEMOGLOBIN 11.5 g/dL (12.0-16.0); IMMATURE GRANULOCYTES ABSOLUTE 0.14 10/3/uL (0.0-0.11); LYMPHOCYTES ABSOLUTE 1.39 10/3/uL (0.67-4.30); MEAN CORPUS HGB CONC 31.3 g/dL (32.0-36.0); MEAN CORPUSCULAR HEMOGLOB 26.7 pg (26.0-34.0); MEAN CORPUSCULAR VOLUME 85.6 fL (80-100); MEAN PLATELET VOLUME 10.5 fL (9.2-13.0); MONOCYTES 8.1 %; MONOCYTES ABSOLUTE 1.12 10/3/uL (0.21-1.20); NEUTROPHILS 80.7 %; NEUTROPHILS ABSOLUTE 11.17 10/3/uL (2.02-8.40); NUCLEATED RED BLOOD CELLS 0.7 /100WBC (0-0); PLATELET COUNT 209 10/3/uL (150-400); RBC DISTRIBUTION WIDTH 19.4 % (12.0-16.0); WHITE BLOOD CELLS 13.9 10/3/uL (4.5-10.5)
[2016-07-22 16:49] LABS: MANUAL DIFF NO %
[2016-07-22 16:59] LABS: ANISOCYTOSIS 1+ (5-10/OIF) (0-5/OIF); PLATELET ESTIMATE ADQ (ADEQUATE)
[2016-07-23 04:52] LABS: A/G RATIO 0.6 (0.7-1.9); ALBUMIN 2.9 G/DL (3.5-5.0); ALKALINE PHOSPHATASE 86 U/L (45-117); BUN (BLOOD UREA NITROGEN) 13 MG/DL (6-23); CALCIUM, SERUM 8.6 MG/DL (8.5-10.4); CHLORIDE, SERUM 100 MMOL/L (96-112); CO2 (CARBON DIOXIDE) 25 MMOL/L (24-34); CREATININE 1.75 MG/DL (0.55-1.02); GFR AFRICAN AMERICAN 38 ML/MIN (>=60); GFR NON AFRICAN AMERICAN 33 ML/MIN (>=60); GLOBULIN 4.9 G/DL (2.5-4.1); GLUCOSE, SERUM 127 MG/DL (60-99); POTASSIUM, SERUM 4.4 MMOL/L (3.5-5.3); SGOT(AST) 11 U/L (5-40); SGPT(ALT) 40 U/L (5-65); SODIUM, SERUM 137 MMOL/L (135-148); TOTAL BILIRUBIN 0.3 MG/DL (0-1.2); TOTAL PROTEIN 7.8 G/DL (6.0-8.5)
[2016-07-23 04:57] LABS: INTERNATIONAL NORMAL RATI 1.3 UNITS (-); PROTIME (NOT ORD) 15.7 SEC (12.0-14.5)
[2016-07-23 04:58] LABS: PARTIAL THROMBO TIME 69.2 SEC (22.5-37.2)
[2016-07-23 04:59] LABS: BASOPHILS 0.1 %; BASOPHILS ABSOLUTE 0.01 10/3/uL (0.0-0.16); EOSINOPHILS 0.1 %; EOSINOPHILS ABSOLUTE 0.02 10/3/uL (0.0-0.53); HEMATOCRIT 35.2 % (36.0-48.0); HEMOGLOBIN 10.9 g/dL (12.0-16.0); IMMATURE GRANULOCYTES ABSOLUTE 0.19 10/3/uL (0.0-0.11); LYMPHOCYTES 9.3 %; LYMPHOCYTES ABSOLUTE 1.69 10/3/uL (0.67-4.30); MEAN CORPUSCULAR HEMOGLOB 26.3 pg (26.0-34.0); MEAN CORPUSCULAR VOLUME 84.8 fL (80-100); MEAN PLATELET VOLUME 9.9 fL (9.2-13.0); MONOCYTES ABSOLUTE 1.28 10/3/uL (0.21-1.20); NEUTROPHILS 82.5 %; NEUTROPHILS ABSOLUTE 15.03 10/3/uL (2.02-8.40); NUCLEATED RED BLOOD CELLS 0.5 /100WBC (0-0); PLATELET COUNT 229 10/3/uL (150-400); RBC DISTRIBUTION WIDTH 19.4 % (12.0-16.0); RED CELL COUNT 4.15 10/6/uL (4.0-5.6); WHITE BLOOD CELLS 18.2 10/3/uL (4.5-10.5)
[2016-07-23 05:00] LABS: MANUAL DIFF NO %
[2016-07-23 05:14] LABS: GIANT PLATELET FEW; PLATELET ESTIMATE ADQ (ADEQUATE)
[2016-07-23 05:15] LABS: POIKILOCYTOSIS 1+ (5-10/OIF) (0-5/OIF); RBC MORPHOLOGY ABN (NORMAL); TARGET CELLS FEW (3-10/OIF) (0-1/OIF)
[2016-07-23 10:41] LABS: PROCALCITONIN 0.35 ng/mL (<0.5)
[2016-07-24 04:54] LABS: CALCIUM, SERUM 8.8 MG/DL (8.5-10.4); CHLORIDE, SERUM 98 MMOL/L (96-112); CO2 (CARBON DIOXIDE) 24 MMOL/L (24-34); GLUCOSE, SERUM 127 MG/DL (60-99); POTASSIUM, SERUM 4.3 MMOL/L (3.5-5.3); SODIUM, SERUM 135 MMOL/L (135-148)
[2016-07-24 04:56] LABS: BUN (BLOOD UREA NITROGEN) 28 MG/DL (6-23); CREATININE 2.99 MG/DL (0.55-1.02); GFR AFRICAN AMERICAN 20 ML/MIN (>=60); GFR NON AFRICAN AMERICAN 17 ML/MIN (>=60); PHOSPHORUS, SERUM 5.7 MG/DL (2.5-4.5)
[2016-07-24 05:18] LABS: BASOPHILS 0.1 %; BASOPHILS ABSOLUTE 0.02 10/3/uL (0.0-0.16); EOSINOPHILS 0.4 %; EOSINOPHILS ABSOLUTE 0.07 10/3/uL (0.0-0.53); HEMATOCRIT 35.3 % (36.0-48.0); HEMOGLOBIN 11.3 g/dL (12.0-16.0); IMMATURE GRANULOCYTES 1.1 %; IMMATURE GRANULOCYTES ABSOLUTE 0.18 10/3/uL (0.0-0.11); LYMPHOCYTES 14.7 %; LYMPHOCYTES ABSOLUTE 2.47 10/3/uL (0.67-4.30); MEAN CORPUSCULAR HEMOGLOB 26.8 pg (26.0-34.0); MEAN CORPUSCULAR VOLUME 83.6 fL (80-100); MEAN PLATELET VOLUME 9.9 fL (9.2-13.0); MONOCYTES ABSOLUTE 1.18 10/3/uL (0.21-1.20); NEUTROPHILS 76.7 %; NEUTROPHILS ABSOLUTE 12.87 10/3/uL (2.02-8.40); PLATELET COUNT 255 10/3/uL (150-400); RBC DISTRIBUTION WIDTH 19.1 % (12.0-16.0); RED CELL COUNT 4.22 10/6/uL (4.0-5.6); WHITE BLOOD CELLS 16.8 10/3/uL (4.5-10.5)
[2016-07-24 05:52] LABS: MANUAL DIFF NO %
[2016-07-25 04:17] LABS: ALBUMIN 2.6 G/DL (3.5-5.0); BUN (BLOOD UREA NITROGEN) 30 MG/DL (6-23); CALCIUM, SERUM 8.2 MG/DL (8.5-10.4); CHLORIDE, SERUM 101 MMOL/L (96-112); CO2 (CARBON DIOXIDE) 23 MMOL/L (24-34); CREATININE 3.03 MG/DL (0.55-1.02); GFR AFRICAN AMERICAN 19 ML/MIN (>=60); GFR NON AFRICAN AMERICAN 17 ML/MIN (>=60); GLUCOSE, SERUM 149 MG/DL (60-99); POTASSIUM, SERUM 4.2 MMOL/L (3.5-5.3); SODIUM, SERUM 139 MMOL/L (135-148)
[2016-07-25 04:18] LABS: PHOSPHORUS, SERUM 4.1 MG/DL (2.5-4.5)
[2016-07-25 04:31] LABS: BASOPHILS 0.1 %; BASOPHILS ABSOLUTE 0.02 10/3/uL (0.0-0.16); EOSINOPHILS 0.2 %; EOSINOPHILS ABSOLUTE 0.05 10/3/uL (0.0-0.53); HEMATOCRIT 35.7 % (36.0-48.0); HEMOGLOBIN 11.3 g/dL (12.0-16.0); IMMATURE GRANULOCYTES ABSOLUTE 0.21 10/3/uL (0.0-0.11); LYMPHOCYTES 5.5 %; LYMPHOCYTES ABSOLUTE 1.17 10/3/uL (0.67-4.30); MEAN CORPUS HGB CONC 31.7 g/dL (32.0-36.0); MEAN CORPUSCULAR HEMOGLOB 26.7 pg (26.0-34.0); MEAN CORPUSCULAR VOLUME 84.2 fL (80-100); MONOCYTES 6.5 %; MONOCYTES ABSOLUTE 1.39 10/3/uL (0.21-1.20); NEUTROPHILS 86.7 %; NEUTROPHILS ABSOLUTE 18.55 10/3/uL (2.02-8.40); PLATELET COUNT 239 10/3/uL (150-400); RBC DISTRIBUTION WIDTH 19.3 % (12.0-16.0); RED CELL COUNT 4.24 10/6/uL (4.0-5.6); WHITE BLOOD CELLS 21.4 10/3/uL (4.5-10.5)
[2016-07-25 04:36] LABS: MANUAL DIFF NO %
[2016-07-26 07:26] LABS: BASOPHILS 0.1 %; BASOPHILS ABSOLUTE 0.02 10/3/uL (0.0-0.16); EOSINOPHILS 0.7 %; EOSINOPHILS ABSOLUTE 0.15 10/3/uL (0.0-0.53); HEMATOCRIT 32.5 % (36.0-48.0); HEMOGLOBIN 10.5 g/dL (12.0-16.0); IMMATURE GRANULOCYTES 1.2 %; IMMATURE GRANULOCYTES ABSOLUTE 0.24 10/3/uL (0.0-0.11); LYMPHOCYTES 9.4 %; LYMPHOCYTES ABSOLUTE 1.89 10/3/uL (0.67-4.30); MANUAL DIFF NO %; MEAN CORPUS HGB CONC 32.3 g/dL (32.0-36.0); MEAN CORPUSCULAR HEMOGLOB 26.6 pg (26.0-34.0); MEAN CORPUSCULAR VOLUME 82.5 fL (80-100); MONOCYTES 5.9 %; MONOCYTES ABSOLUTE 1.19 10/3/uL (0.21-1.20); NEUTROPHILS 82.7 %; NEUTROPHILS ABSOLUTE 16.57 10/3/uL (2.02-8.40); PLATELET COUNT 219 10/3/uL (150-400); RBC DISTRIBUTION WIDTH 19.2 % (12.0-16.0); RED CELL COUNT 3.94 10/6/uL (4.0-5.6); WHITE BLOOD CELLS 20.1 10/3/uL (4.5-10.5)
[2016-07-26 07:36] LABS: BUN (BLOOD UREA NITROGEN) 54 MG/DL (6-23); CALCIUM, SERUM 7.9 MG/DL (8.5-10.4); CHLORIDE, SERUM 98 MMOL/L (96-112); CO2 (CARBON DIOXIDE) 21 MMOL/L (24-34); CREATININE 4.43 MG/DL (0.55-1.02); GFR AFRICAN AMERICAN 12 ML/MIN (>=60); GFR NON AFRICAN AMERICAN 11 ML/MIN (>=60); GLUCOSE, SERUM 112 MG/DL (60-99); POTASSIUM, SERUM 3.9 MMOL/L (3.5-5.3); SODIUM, SERUM 136 MMOL/L (135-148)
[2016-07-26 07:45] LABS: ANISOCYTOSIS 1+ (5-10/OIF) (0-5/OIF); HYPOCHROMIA 1+ (3-10/OIF) (0-2/OIF); PLATELET ESTIMATE ADQ (ADEQUATE)
[2016-07-26 07:46] LABS: SCHISTOCYTES OCC (0-2/OIF); TARGET CELLS OCC (1-2/OIF) (0-1/OIF)
[2016-07-28 10:08] LABS: BASOPHILS 0.2 %; BASOPHILS ABSOLUTE 0.04 10/3/uL (0.0-0.16); EOSINOPHILS 1.7 %; HEMATOCRIT 32.2 % (36.0-48.0); HEMOGLOBIN 10.1 g/dL (12.0-16.0); IMMATURE GRANULOCYTES 0.8 %; IMMATURE GRANULOCYTES ABSOLUTE 0.13 10/3/uL (0.0-0.11); LYMPHOCYTES 10.2 %; LYMPHOCYTES ABSOLUTE 1.75 10/3/uL (0.67-4.30); MEAN CORPUS HGB CONC 31.4 g/dL (32.0-36.0); MEAN CORPUSCULAR HEMOGLOB 25.9 pg (26.0-34.0); MEAN CORPUSCULAR VOLUME 82.6 fL (80-100); MONOCYTES 9.2 %; MONOCYTES ABSOLUTE 1.59 10/3/uL (0.21-1.20); NEUTROPHILS 77.9 %; NEUTROPHILS ABSOLUTE 13.41 10/3/uL (2.02-8.40); PLATELET COUNT 255 10/3/uL (150-400); RBC DISTRIBUTION WIDTH 19.3 % (12.0-16.0); WHITE BLOOD CELLS 17.2 10/3/uL (4.5-10.5)
[2016-07-28 10:12] LABS: MANUAL DIFF NO %
[2016-07-28 10:22] LABS: ALBUMIN 2.7 G/DL (3.5-5.0); BUN (BLOOD UREA NITROGEN) 56 MG/DL (6-23); CALCIUM, SERUM 8.2 MG/DL (8.5-10.4); CHLORIDE, SERUM 99 MMOL/L (96-112); CO2 (CARBON DIOXIDE) 23 MMOL/L (24-34); GLUCOSE, SERUM 124 MG/DL (60-99); POTASSIUM, SERUM 3.9 MMOL/L (3.5-5.3); SODIUM, SERUM 137 MMOL/L (135-148)
[2016-07-28 10:23] LABS: CREATININE 5.15 MG/DL (0.55-1.02); GFR AFRICAN AMERICAN 10 ML/MIN (>=60); GFR NON AFRICAN AMERICAN 9 ML/MIN (>=60); PHOSPHORUS, SERUM 5.8 MG/DL (2.5-4.5)
[2016-07-28 10:46] LABS: PLATELET ESTIMATE ADQ (ADEQUATE)
[2016-07-28 10:47] LABS: BURR CELLS 1+ (3-10/OIF) (0-2/OIF)
[2016-07-28] MEDS ORDERED: ELIQUIS 2.5 MG2.5 MG PO (15:26)
[2016-07-28] MEDS ORDERED: MONODOX100 MG PO (15:27)
[2016-07-28] MEDS ORDERED: PROAMAT5 PO (15:27)
[2016-07-28] MEDS ORDERED: PCET PO (15:27)
== END 2016-07-28 17:08 | disposition home health service (06) | DRG 252 ==
LOC: SDC 14:31 → SDC/OF 21:41 → CCU 22:21 → 1SO 07-25 12:50
PROVIDERS: Internal Medicine Critical Care Medicine; Internal Medicine Nephrology; Surgery
PROC: 03CY0ZZ Extirpation of Matter from Upper Artery, Open Approach (ICD-10-PCS; principal; 2016-07-17 16:15)
PROC: 037Y0ZZ Dilation of Upper Artery, Open Approach (ICD-10-PCS; 2016-07-17 16:15)
PROC: B51W1ZZ Fluoroscopy of Dialysis Shunt/Fistula using Low Osmolar Contrast (ICD-10-PCS; 2016-07-17 16:15)
PROC: 5A1D60Z (ICD-10-PCS; 2016-07-18)
PROC: 06HM33Z Insertion of Infusion Device into Right Femoral Vein, Percutaneous Approach (ICD-10-PCS; 2016-07-20)
PROC: B54BZZA Ultrasonography of Right Lower Extremity Veins, Guidance (ICD-10-PCS; 2016-07-20)
PROC: B246ZZ4 Ultrasonography of Right and Left Heart, Transesophageal (ICD-10-PCS; 2016-07-22)
PROC: 4A023N7 Measurement of Cardiac Sampling and Pressure, Left Heart, Percutaneous Approach (ICD-10-PCS; 2016-07-24)
PROC: B2151ZZ Fluoroscopy of Left Heart using Low Osmolar Contrast (ICD-10-PCS; 2016-07-24)
DX: T82.868A Thrombosis due to vascular prosthetic devices, implants and grafts, initial encounter (principal); N18.6 End stage renal disease; R57.0 Cardiogenic shock; J96.21 Acute and chronic respiratory failure with hypoxia; L89.323 Pressure ulcer of left buttock, stage 3; I12.0 Hypertensive chronic kidney disease with stage 5 chronic kidney disease or end stage renal disease; J96.22 Acute and chronic respiratory failure with hypercapnia; Z68.42 Body mass index [BMI] 45.0-49.9, adult; L02.411 Cutaneous abscess of right axilla; E27.2 Addisonian crisis; I27.2 Other secondary pulmonary hypertension; B96.20 Unspecified Escherichia coli [E. coli] as the cause of diseases classified elsewhere; J44.9 Chronic obstructive pulmonary disease, unspecified; K21.9 Gastro-esophageal reflux disease without esophagitis; L73.2 Hidradenitis suppurativa; G40.909 Epilepsy, unspecified, not intractable, without status epilepticus; Z99.2 Dependence on renal dialysis; D63.1 Anemia in chronic kidney disease; D15.1 Benign neoplasm of heart; Z79.891 Long term (current) use of opiate analgesic; I95.81 Postprocedural hypotension; D47.2 Monoclonal gammopathy; F32.9 Major depressive disorder, single episode, unspecified; E66.01 Morbid (severe) obesity due to excess calories; L89.152 Pressure ulcer of sacral region, stage 2; L89.322 Pressure ulcer of left buttock, stage 2; L89.312 Pressure ulcer of right buttock, stage 2; Z99.3 Dependence on wheelchair; Z88.2 Allergy status to sulfonamides; Z87.891 Personal history of nicotine dependence; Z79.01 Long term (current) use of anticoagulants; Z79.899 Other long term (current) drug therapy; Z88.8 Allergy status to other drugs, medicaments and biological substances; Z88.1 Allergy status to other antibiotic agents
CPT/HCPCS: 36569; 36600; 36831; 71010; 71275; 76376; 80048; 80053; 80069; 82272; 82330; 82533; 82550; 82553; 82805; 82962; 83735; 84100; 84145; 84439; 84443; 84481; 84484; 85014; 85018; 85025; 85610; 85730; 87040; 87070; 87077; 87186; 87205; 87641; 93005; 93312; 93458; 94640; 94667; 94668; 97161-GP; 99152; A9270-GY; C1725; C1751; C1757; C1769; C1894; C8929; G0257; G8978-CN-GP; G8979-CN-GP; G8980-CN-GP; J0610; J1720; J2185; J2250; J2370; J2405; J3010; P9047; Q9957; Q9966; Q9967